=== PATIENT | male | born 1975 | race Caucasian/White ===

== ENCOUNTER 2019-10-10 22:40 | Observation (INO) | payer SELFPAY ==
[~2019-10-10] VITALS: Ht 180.3 cm; Wt 104.3 kg
[2019-10-10] MEDS ORDERED: ASPIRIN 81 MG CHEW TAB PO ONE (22:45)
--- NOTE | 2019-10-10 22:47 | Emergency Department Note ---
History of Present Illnes History of Present Illness History of Present Illness This is a 44 year old male presents to the ED for substernal CP which started this AM . Historian: Patient Arrival Mode: Car Onset (how long ago): day(s) (1) Location: substernal Radiation: Reports non-radiation Severity: moderate Onset quality: gradual Duration (how long): day(s) (1) Timing of current episode: constant Progression: unchanged Chronicity: new Context: Denies recent illness, Denies recent surgery, Denies recent immobilization, Denies recent travel, Denies trauma/injury, Denies new medi cations, Denies hx of DVT/PE, Denies non-compliance w/ medications, Denies other Relieving factors: none Exacerbating factors: none Associated symptoms: Reports chest pain Treatments prior to arrival: none Past Medical/Family History Physician Review I have reviewed the patient's past medical and family history. Any updates have been documented here. Past Medical History Recent Fever: No Clinical Suspicion of Infectio: No New/Unexplained Change in Ment: No Past Medical History: Osteoarthritis Past Surgical History: None Social History Smoking Cessation: Never Smoker Alcohol Use: None Any Illegal Drug Use: No Review of Systems Review of Systems Constitutional: Reports no symptoms EENTM: Reports no symptoms Cardiovascular: Reports chest pain, Reports edema Respiratory: Reports dyspnea Gastrointestinal: Reports no symptoms Genitourinary: Reports no symptoms Musculoskeletal: Reports no symptoms Integumentary: Reports no symptoms Neurological: Reports no symptoms Psychological: Reports no symptoms Endocrine: Reports no symptoms Hematological/Lymphatic: Reports no symptoms Physical Exam Related Data Allergies: Coded Allergies: No Known Allergies (Unverified , 10/10/19) Triage Vital Signs Vital Signs Date Time Temp Pulse Resp B/P (MAP) Pulse Ox O2 Delivery O2 Flow Rate FiO2 10/10/19 22:54 98.6 109 23 148/101 100 Room Air Vital signs reviewed: Yes Physical Exam CONSTITUTIONAL Constitutional: Present obese, Present other (poor hygeine) HENT HENT: Present normocephalic, Present atraumatic, Present oropharynx clear/moist, Present nose normal HENT L/R: Present left ext ear normal, Present right ext ear normal EYES Eyes: Reports PERRL, Reports conjunctivae normal NECK Neck: Present ROM normal PULMONARY Pulmonary: Present effort normal, Present breath sounds normal CARDIOVASCULAR Cardiovascular: Present tachycardia, Present LLE edema, Present RLE edema GASTROINTESTINAL Abdominal: Present soft, Present nontender, Present bowel sounds normal GENITOURINARY Genitourinary: Present exam deferred SKIN Skin: Present erythema, Present other (dry xerotic skin b/l LE with partial thickness wound anterior distal leg .Granulation tissue at base without p eriwound erythema) MUSCULOSKELETAL Musculoskeletal: Present ROM normal NEUROLOGICAL Neurological: Present alert, Present oriented x 3, Present no gross motor or sensory deficits PSYCHOLOGICAL Psychological: Present mood/affect normal, Present judgement normal Results Laboratory Lab results reviewed: Yes Laboratory comments Laboratory Tests Test 10/10/19 23:07 White Blood Count 9.47 x10e3/uL (4.8-10.8) Red Blood Count 3.75 x10e6/uL (4.3-5.7) Hemoglobin 10.1 g/dL (14.0-18.0) Hematocrit 32.0 % (38.2-49.6) Mean Corpuscular Volume 85.3 fL (81-99) Mean Corpuscular Hemoglobin 26.9 pg (28-32) Mean Corpuscular Hemoglobin Concent 31.6 g/dL (31-35) Red Cell Distribution Width 14.9 % (11.7-14.4) Platelet Count 289 x10e3/uL (140-360) Neutrophils (%) (Auto) 71.2 % (38.7-80.0) Lymphocytes (%) (Auto) 14.0 % (18.0-39.1) Monocytes (%) (Auto) 13.6 % (4.4-11.3) Eosinophils (%) (Auto) 0.2 % (0.0-6.0) Basophils (%) (Auto) 0.3 % (0.0-1.0) Neutrophils # (Auto) 6.7 (2.1-6.9) Lymphocytes # (Auto) 1.3 (1.0-3.2) Monocytes # (Auto) 1.3 (0.2-0.8) Eosinophils # (Auto) 0.0 (0.0-0.4) Basophils # (Auto) 0.0 (0.0-0.1) Absolute Immature Granulocyte (auto 0.07 x10e3/uL (0-0.1) Sodium Level 134 mmol/L (136-145) Potassium Level 3.7 mmol/L (3.5-5.1) Chloride Level 97 mmol/L (98-107) Carbon Dioxide Level 21 mmol/L (22-29) Anion Gap 19.7 mmol/L (8-16) Blood Urea Nitrogen 6 mg/dL (7-26) Creatinine 0.83 mg/dL (0.72-1.25) Estimat Glomerular Filtration Rate > 60 ML/MIN (60-) BUN/Creatinine Ratio 7 (6-25) Glucose Level 109 mg/dL (74-118) Calcium Level 9.1 mg/dL (8.4-10.2) Total Bilirubin 1.1 mg/dL (0.2-1.2) Aspartate Amino Transf (AST/SGOT) 28 IU/L (5-34) Alanine Aminotransferase (ALT/SGPT) 33 IU/L (0-55) Alkaline Phosphatase 94 IU/L (40-150) Creatine Kinase 49 IU/L (30-200) Creatine Kinase MB 0.30 ng/mL (0-5.0) Troponin I < 0.001 ng/mL (0-0.300) B-Type Natriuretic Peptide 12.4 pg/mL (0-100) Total Protein 8.2 g/dL (6.5-8.1) Albumin 4.2 g/dL (3.5-5.0) Globulin 4.0 g/dL (2.3-3.5) Albumin/Globulin Ratio 1.1 (0.8-2.0) Imaging Imaging results reviewed: Yes Impressions [place] [id number] Patient Name: PAN BARRIOS MR #: [id number] : 1975 Age/Sex: 44/M Req #: [id number] Adm Physician: Ordered by: JAGDISH KRAUSE DO Report #: [id number] Location: Room/Bed: ____ Procedure: [id number] DX/CHEST SINGLE (PORTABLE) Exam Date: 10/10/19 Exam Time: 2324 REPORT STATUS: Signed EXAMINATION: CHEST SINGLE (PORTABLE) INDICATION: ^CP ^[id number] ^[id number] COMPARISON: None FINDINGS: AP view TUBES and LINES: None. LUNGS: Lungs are well inflated. Minimal left basilar haziness. PLEURA: No significant pleural effusion or pneumothorax. HEART AND MEDIASTINUM: The cardiomediastinal silhouette is enlarged on this AP view.. BONES AND SOFT TISSUES: No acute osseous lesion. Soft tissues are unremarkable. UPPER ABDOMEN: No free air under the diaphragm. IMPRESSION: Minimal left basilar haziness, which could be due to subsegmental atelectasis, small effusion, or developing pneumonia in the appropriate clinical context. Signed by: Dr. Osorio Tripp MD on 10/10/2019 11:48 PM Dictated By: OSORIO TRIPP MD 47 Transcribed By: JU on 10/10/192347 COPY TO: JAGDISH KRAUSE DO~ Procedures 12 Lead ECG Interpretation ECG Interpretation : ECG: ECG 1 Housekeeper Nanny: Interpreted by ED physician Date: Oct 10, 2019 Time: 22:58 Prior ECG tracings: reviewed Rhythm: sinus tachycardia Rate: tachycardia BPM: 101 QRS axis: normal ST segments normal: Yes T waves normal: Yes Clinical Decision Tools HEART Score HEART Score: HEART Score Response (Comments) Value History Slightly suspicious 0 EKG Normal 0 Age 45 - 65 1 Risk factors 1 or 2 risk factors 1 Troponin < or = to normal limit Total 2 Assessment & Plan Medical Decision Making MDM Diff Dx : cellulitis, PE, ACS, costocondritis Reassessment Reassessment patient without social support . Plan to consult case management. Assessment & Plan Final Impression: (1) Atypical chest pain (2) Leg wound, right Depart Disposition: ADMITTED JAGDISH KRAUSE DO Oct 10, 2019 22:47
[2019-10-10 23:14] LABS: BASOPHILS % 0.3 % (0.0-1.0); EOSINOPHILS % 0.2 % (0.0-6.0); HEMOGLOBIN 10.1 g/dL (14.0-18.0); LYMPHOCYTES # (AUTO) 1.3 (1.0-3.2); MEAN CORPUSCULAR HEMOGLOBIN 26.9 pg (28-32); MEAN CORPUSCULAR HGB CONC 31.6 g/dL (31-35); MEAN CORPUSCULAR VOLUME 85.3 fL (81-99); MONOCYTES # (AUTO) 1.3 (0.2-0.8); MONOCYTES % 13.6 % (4.4-11.3); NEUTROPHILS # (AUTO) 6.7 (2.1-6.9); NEUTROPHILS % 71.2 % (38.7-80.0); PLATELET COUNT 289 x10e3/uL (140-360); RED BLOOD COUNT 3.75 x10e6/uL (4.3-5.7); RED CELL DISTRIBUTION WIDTH 14.9 % (11.7-14.4)
[2019-10-10 23:33] LABS: ALANINE AMINOTRANSFERASE 33 IU/L (0-55); ALBUMIN 4.2 g/dL (3.5-5.0); ALBUMIN/GLOBULIN RATIO 1.1 (0.8-2.0); ALKALINE PHOSPHATASE 94 IU/L (40-150); ANION GAP 19.7 mmol/L (8-16); BLOOD UREA NITROGEN 6 mg/dL (7-26); BUN/CREATININE RATIO 7 (6-25); CALCIUM 9.1 mg/dL (8.4-10.2); CARBON DIOXIDE 21 mmol/L (22-29); CHLORIDE 97 mmol/L (98-107); CREATINE KINASE 49 IU/L (30-200); CREATININE, SERUM 0.83 mg/dL (0.72-1.25); EST GLOMERULAR FILTRATION RATE > 60 ML/MIN (60-); GLUCOSE 109 mg/dL (74-118); POTASSIUM 3.7 mmol/L (3.5-5.1); SODIUM 134 mmol/L (136-145)
--- NOTE | 2019-10-10 23:52 | Diagnostic Imaging Report ---
EXAMINATION: CHEST SINGLE (PORTABLE) INDICATION: ^CP ^[id number] ^[id number] COMPARISON: None FINDINGS: AP view TUBES and LINES: None. LUNGS: Lungs are well inflated. Minimal left basilar haziness. PLEURA: No significant pleural effusion or pneumothorax. HEART AND MEDIASTINUM: The cardiomediastinal silhouette is enlarged on this AP view.. BONES AND SOFT TISSUES: No acute osseous lesion. Soft tissues are unremarkable. UPPER ABDOMEN: No free air under the diaphragm. IMPRESSION: Minimal left basilar haziness, which could be due to subsegmental atelectasis, small effusion, or developing pneumonia in the appropriate clinical context. Signed by: Dr. Osorio Tripp MD on 10/10/2019 11:48 PM
--- NOTE | 2019-10-11 03:06 | NUR ---
Attempted to place patient in taxi. Patient unable to get in under his own power. driver education instructor states patient cannot go if he cannot ambulate under own power.
--- NOTE | 2019-10-11 03:25 | NUR ---
Pt was place back to ER-7 per house sup instructions & later be endorse to a behavioral health case manager later today. Pt will be continously monitored here in ED. No further complaint made.
--- NOTE | 2019-10-11 07:28 | NUR ---
Pt assessed, noted large amount of swelling to L hand and arm, Noted erythema , +2. Cap refill >2 seconds, palpable radial pulse bilaterally. Bilateral lower extremities red, warm to touch, +3 pitting edema. Noted wounds to R Lower leg. Dressing placed on previous shift by RN. Weak pedal pulses noted. Pt reports pain is 10/10. Pt is unable to ambulate at this time due the pain and weakness. Pt reports the swelling has gotten so bad he cannot push his cart and cannot walk, states "I can't keep from falling". Food provided for patient.
--- NOTE | 2019-10-11 07:32 | NUR ---
called case mangement per hand off report of night charge. per romeo cornejo spoke to aos (cleve) who wanted social science instructor called this am for possible placement. primary nurse aware of all information above. social science instructor states will come eval situation daren. will move forward after that. per social science instructor, pt needs to be fed and primary nurse asked md for diet order. obtained verbal order and tray ordered for pt.
--- NOTE | 2019-10-11 07:44 | NUR ---
complete re-eval by primary nurse and updated full vital signs by primary rn. pt remains in sinus tach no ectopy and tachypnenic.
--- NOTE | 2019-10-11 07:45 | NUR ---
all concerns adressed to er md by primary nurse.
--- NOTE | 2019-10-11 07:46 | NUR ---
er md and primary rn to room together for update plan of care. md to admit pt per primary rn
[2019-10-11] MEDS ORDERED: CEFEPIME 1GM/NS 0.9% 50 ML 50 ML IV ONE ×2 (08:00→08:44)
[2019-10-11] MEDS ORDERED: ASPIRIN 81 MG CHEW TAB PO ONE (08:00)
--- NOTE | 2019-10-11 08:08 | NUR ---
SW at bedside speaking with patient.
--- NOTE | 2019-10-11 08:13 | NUR ---
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 Pt has a mother and friends who pay for his cell phone. Pt states four years ago he injured his leg doing martial arts and two years ago got a wheelchair and has used it ever since. Pt states he let his gold card laspe because he can go anywhere and hospitals will take care of him. Pt aware of admission and agree's. Pt is aware he will have to find his own placement at discharge. Pt states understanding. Pt given nursing home list, gold card application, and help card. ([facility])
--- NOTE | 2019-10-11 08:18 | NUR ---
SPOKE WITH PATIENT, BEEN LIVING IN PARKING LOT BEHIND [employer] AND THE [employer]. HAS OWN WHEELCHAIR, HURT HIS KNEES 4 YEARS AGO AND NEVER GOT THEM FIXED. HAD A GOLD CARD PRIOR AND LET [employer]. MOTHER LIVES LOCALLY AND HE DEPENDS ON HER AND FRIENDS FOR MONEY TO PAY FOR HIS CELL PHONE AND ODD THINGS. STATES WHITLOCK WALKED IN 2 YEARS. DEPENDS ON THE SYSTEM, HOSPITALS WILL TAKE CARE OF HIM WHEN HE NEEDS. DOESNT LIKE SHELTERS. HAD REALISTIC CONVERSATIONS ABOUT NEED OF CARE. PT IS SELF PAY. HE STATES HE THOUGHT THE STATE WOULD PUT HIM IN A INTERMEDIATE AND PAY FOR HIM TO BE TAKEN CARE OF. LET HIM KNOW THAT IS A CRITERIA AND PROCESS THAT TAKES A LONG TIME TO COMPLETE UP TO 2 YEARS. STATES WHITLOCK WORKED IN YEARS. LET HIM KNOW HE IS BEING ADMITTED BUT NEEDS TO CONSIDER HIS OPTIONS FOR DISCHARGE AND TO THINK ABOUT WHERE HE IS GOING WHEN HE IS READY FOR DISCHARGE. HE STATES HE WILL THINK ABOUT IT. WILL FOLLOW UP.
--- OUTSIDE RECORDS SUMMARY | 2019-10-11 08:22 | XMS REPORT | Continuity of Care Document ---
Author Author [facility] t Organization [facility] Address [address] [place] [address] Phone Unavailable Care Team Providers Care Gluer Machine Operator Name Role Phone JAGDISH KRAUSE Unavailable Payers Payer Name Policy Type Policy Number Effective Date Expiration Date S ource Problems This patient has no known problems. Allergies, Adverse Reactions, Alerts Allergy Name Allergy Type Status Severity Reaction(s) Onset Date Inacti ve Date Treating Clinician Comments Source No Known Allergies DA Active U 2017-11-03 00:00:00 [facility] No Known Allergies DA Active U 2017-10-13 00:00:00 [facility] No Known Allergies DA Active U 2016-05-26 00:00:[address] [facility] Medications This patient has no known medications. Procedures This patient has no known procedures. Results Test Description Test Time Test Comments Results Result Comments Source CHEST SINGLE (PORTABLE) 2019-10-10 23:47:00 [facility] [address] [address] Patient Name: PAN BARRIOS MR #: [id number] : 1975 Age/Sex: 44/M Req #: [id number] Adm Physician: Ordered by: JAGDISH KRAUSE DO Report #: [id number] Location: ER Room/Bed: Procedure: [id number] DX/CHEST SINGLE (PORTABLE) Exam Date: 10/10/19 Exam Time: 5 REPORT STATUS: Signed EXAMINATION: CHEST SINGLE (PORTABLE) INDICATION: [id number] COMPARISON: None FINDINGS: AP view TUBES and LINES: None. LUNGS: Lungs are well inflated. Minimal left basilar haziness. PLEURA: No sign ificant pleural effusion or pneumothorax. HEART AND MEDIASTINUM: The cardiomediastinal silhouette is enlarged on this AP view.. BONES AND SOFT TISSUES: No acute osseous lesion. Soft tissues are unremarkable. UPPER ABDOMEN: No free air under the diaphragm. IMPRESSION: Minimal left basilar haziness, which could be due to subsegmental atelectasis, small effusion, or developing pneumonia in the appropriate clinical context. Signed by: Dr. Osorio Tamayo MD on 10/10/2019 11:48 PM Dictated By: OSORIO TAMAYO MD 47 Transcribed By: JU on 10/10/192347 COPY TO: JAGDISH KRAUSE DO JAK2 MUTATION ANALYSIS 2019-04-19 12:03:00 Test Item JAK2 MUTATION ANALYSIS (test code = MXK5IAB) SEE REPORT JAK2 Mutation Analysis, Qual JAK2 V617F mutation detection Result: NEGATIVE for the JAK2 V617F mutation. Interpretation: The G to T nucleotide change encoding the V617F mutation was not detected. This result does not rule out the presence of the JAK2 mutation at a level below the sensitivity of detection of this assay, or the presence of other mutations within JAK2 not detected by this assay. This result does not rule out a diagnosis of polycythemia vera, essential thrombocythemia or idiopathic myelofibrosis as the V617F mutation is not detected in all patients with these disorders. Background: JAK2 is a cytoplasmic tyrosine kinase with a self role insignaltransduction from multiple hematopoietic growth factorreceptors. A point mutation within exon 14 of the JAK2 gene([id number]) encoding a valine to phenylalanine substitution atposition 617 of the JAK2 protein (V617F) has been identifiedin most patients with polycythemia vera, and in about halfhalf of those with either essential thrombocythemia oridiopathic myelofibrosis. The V617F has also been detected,although infrequently, in other myeloid disorders such aschronic myelomonocytic leukemia and chronic neutrophilicluekemia.V617F is an acquired mutation that alters a highly conservedvaline present in the negative regulatory JH2 domain of theJAK2 protein and is predicted to dysregulate kinase activity Methodology:Total genomic DNA was extracted and subjected to TaqManreal-time PCR amplification/detection. Two amplificationproducts per sample were monitored by real-time PCR usingprimers/probes specific to JAK2 wild type (WT) and JAK2 mutant V617F. The [employer]-Drive [employer] Absolute Quantitation softwarewill compare the patient specimen valuse to the standardcurves and generate percent values for wild type and mutanttype.In vitro studies have indicated that this assay has ananalyticalsensitivity of 1%.References:Scott EJ, Daniel QUIGLEY, Main PJ, et al. Acquired mutationof the tyrosine kinase JAK2 in human myeloproliferativedisorders. Lancet.2005 Apr 25-; 365(3878):0467-7967.Jonathan Matthews, Manav Land, Livier Ledesma JP. A unique clonal JAK2 mutationleading to constitutive signaling causes polycythaemia vera.Nature.2005 May 28; 434(6014):2601-8145. Naveen R, Tito F, Anthony , et al. Jldme-ca-qugylgayaxirexfg of JAK2 in myeloproliferative disorders. N Engl JMed. 2005Apr 28; 352(56):9144-3924. Director Review: Soco Spence, PhD, [facility] 01 Director, Molecular Genetics [facility] [place], [place] BY CHITRA 04/19/19 1203 FE W/TOTAL IRON BINDING CAP.2019-04-19 12:03:00* Test Item Value Reference Range Interpretation Comments SERUM IRON (test code = IRON) 27 ug/dL 50-175 L TOTAL IRON BINDING CAPACITY (test code = TIBC) 291 mcg/dL 250-450 N IRON SATURATION (test code = FESAT) 9.28 % 13-45 L VITAMIN [id number] 12:03:00* Test Item Value Reference Range Interpretation Comments VITAMIN B12 (test code = VITB12) 385 pg/mL 193-986 N THYROID STIMULATING [id number] 12:03:00* Test Item Value Reference Range Interpretation Comments THYROID STIMULATING HORMONE (test code = TSH) 4.850 uIU/mL 0.36-3.7 4 H TSH REFERENCE RANGES: EUTHYROID: 0.35 - 4.3 mIU/mL HYPO : > 5.5 mIU/mL HYPER : < 0.35 mIU/mL [id number] 13:09:00* Test Item Value Reference Range Interpretation Comments ERYTHROPOIETIN (test code = JOLLY) 10.1 mIU/mL 2.6-18.5 Simone [place] DxI 800 Immunoassay SystemValues obtained with different assay methods or kits cannotbe used interchangeably. Results cannot be interpreted asabsolute evidence of the presence or absence of malignantdisease.Performed At: [facility] [id number] Christine MD Ph:[phone] [id number] 16:35:00* Test Item Value Reference Range Interpretation Comments GLUBED (test code = GLUBED) 84 mg/dL 74-106 N Performed by certified dinkey operator at [facility] AB HEPATITIS [id number] 10:45:00* Test Item Value Reference Range Interpretation Comments AB HEPATITIS C (test code = HCVAB) 0.3 0.0-0.9 INFCE Result Units: s/co ratio Negative: < 0.8 Indeterminate: 0.8 - 0.9 Positive: > 0.9 The CDC recommends that a positive HCV antibody result be followed up with a HCV Nucleic Acid Amplification test ([id number]).Performed At: [facility] [id number] Kyle L MD Ph:[phone] [id number] 08:10:00* Test Item Value Reference Range Interpretation Comments GLUBED (test code = GLUBED) 84 mg/dL 74-106 N Performed by certified dinkey operator at [facility] BASIC METABOLIC [id number] 05:05:00* Test Item Value Reference Range Interpretation Comments SODIUM (test code = NA) 137 mmol/L 136-145 RESU LT VERIFIED BY REPEAT ANALYSIS POTASSIUM (test code = K) 4.9 mmol/L 3.5-5.1 N CHLORIDE (test code = CL) 107.0 mmol/L 98-107 N CARBON DIOXIDE (test code = CO2) 24.0 mmol/L 21-32 N ANION GAP (test code = GAP) 10.9 10-20 N GLUCOSE (test code = GLU) 80 mg/dL 74-106 N BLOOD UREA NITROGEN (test code = BUN) 35 mg/dL 7-18 H RESULT VERIFIED BY REPEAT ANALYSIS GLOMERULAR FILTRATION RATE (test code = GFR) > 60 mL/min >=60 Estimated GFR by using Modified MDRD formula.Chronic kidney disease is defined as either kidney damageor GFR <60 mL/min/1.73 m2 for >3 months. CREATININE (test code = CREAT) 0.90 mg/dL 0.7-1.3 N BUN/CREATININE RATIO (test code = BUN/CREA) 38.9 10-20 H CALCIUM (test code = CA) 8.4 mg/dL 8.5-10.1 L CBC W/AUTO [id number] 04:36:00* Test Item Value Reference Range Interpretation Comments WHITE BLOOD CELL (test code = WBC) 6.2 K/mm3 4.5-12.5 N RED BLOOD CELL (test code = RBC) 3.23 mill/mm3 4.0-5.8 L HEMOGLOBIN (test code = HGB) 8.9 gram/dL 13.0-17.5 L RESULT VERIFIED BY REPEAT ANALYSIS HEMATOCRIT (test code = HCT) 28.2 % 42.0-52.0 L MEAN CELL VOLUME (test code = MCV) 87.3 fL 80-98 N MEAN CELL HGB (test code = MCH) 27.6 picogram 27.0-33.0 N MEAN CELL HGB CONCETRATION (test code = MCHC) 31.6 gram/dL 33.0-36. 0 L RED CELL DISTRIBUTION WIDTH (test code = RDW) 13.2 % 11.6-16. 2 N RED CELL DISTRIBUTION WIDTH SD (test code = RDW-SD) 42.6 fL 37 .0-51.0 N PLATELET COUNT (test code = PLT) 474 K/mm3 150-450 H RESULT VERIFIED BY REPEAT ANALYSIS MEAN PLATELET VOLUME (test code = MPV) 9.6 fL 6.7-11.0 N NEUTROPHIL % (test code = NT%) 53.7 % 39.0-69.0 N IMMATURE GRANULOCYTE % (test code = IG%) 1.6 % 0.0-5.0 N LYMPHOCYTE % (test code = LY%) 34.1 % 25.0-55.0 N MONOCYTE % (test code = MO%) 8.5 % 0.0-10.0 N EOSINOPHIL % (test code = EO%) 1.6 % 0.0-5.0 N BASOPHIL % (test code = BA%) 0.5 % 0.0-1.0 N NUCLEATED RBC % (test code = NRBC%) 0.0 % 0-0 N NEUTROPHIL # (test code = NT#) 3.30 K/mm3 1.8-7.7 N IMMATURE GRANULOCYTE # (test code = IG#) 0.10 x10 3/uL 0-0.03 H LYMPHOCYTE # (test code = LY#) 2.10 K/mm3 1.0-5.0 N MONOCYTE # (test code = MO#) 0.52 K/mm3 0-0.8 N EOSINOPHIL # (test code = EO#) 0.10 K/mm3 0.0-0.5 N BASOPHIL # (test code = BA#) 0.03 K/mm3 0.0-0.2 N NUCLEATED RBC # (test code = NRBC#) 0.00 K/mm3 0.0-0.1 N [id number] 19:35:00* Test Item Value Reference Range Interpretation Comments GLUBED (test code = GLUBED) 107 mg/dL 74-106 H Performed by certified dinkey operator at [facility] [id number] 19:35:00* Test Item Value Reference Range Interpretation Comments GLUBED (test code = GLUBED) 85 mg/dL 74-106 N Performed by certified dinkey operator at [facility] UR SMEAR EOSINOPHIL [id number] 17:41:00* Test Item Value Reference Range Interpretation Comments UR SMEAR EOSINOPHIL COUNT (test code = EOSCTU) NONE SEEN per HPF NO NE SEEN UR [id number] 17:41:00* Test Item Value Reference Range Interpretation Comments UR NA,RANDOM (test code = KARSTEN) 28 mmol/L 20-110 N URINE K, RANDOM (test code = KU) 74.0 mmol/L 12-75 N UR CHLORIDE RANDOM (test code = CLU) < 10 mEq/L UR PROTEIN/CREATININE [id number] 17:41:00* Test Item Value Reference Range Interpretation Comments UR PROTEIN RANDOM (test code = PROTU) 55.6 mg/dL 0.0-11.9 H Protein levels may be falsely elevated in patients withelevated level of aminoglycoside antibiotics in CSF and inhighly concentrated urine specimens. If false elevation issuspected, contact lab for alternated testing technique. UR CREATININE RANDOM (test code = CREATU) 318.0 mg/dL 30-125 H PROTEIN/CREATININE RATIO (test code = P/CRATIO) 0.17 RATIO 0.0-0. 20 N UR SMEAR EOSINOPHIL [id number] 16:06:00* Test Item Value Reference Range Interpretation Comments UR SMEAR EOSINOPHIL COUNT (test code = EOSCTU) per HPF NONE SE EN UR [id number] 16:06:00* Test Item Value Reference Range Interpretation Comments UR NA,RANDOM (test code = KARSTEN) 28 mmol/L 20-110 N URINE K, RANDOM (test code = KU) 74.0 mmol/L 12-75 N UR CHLORIDE RANDOM (test code = CLU) < 10 mEq/L UR PROTEIN/CREATININE [id number] 16:06:00* Test Item Value Reference Range Interpretation Comments UR PROTEIN RANDOM (test code = PROTU) 55.6 mg/dL 0.0-11.9 H Protein levels may be falsely elevated in patients withelevated level of aminoglycoside antibiotics in CSF and inhighly concentrated urine specimens. If false elevation issuspected, contact lab for alternated testing technique. UR CREATININE RANDOM (test code = CREATU) 318.0 mg/dL 30-125 H PROTEIN/CREATININE RATIO (test code = P/CRATIO) 0.17 RATIO 0.0-0. 20 N UR SMEAR EOSINOPHIL [id number] 15:52:00* Test Item Value Reference Range Interpretation Comments UR SMEAR EOSINOPHIL COUNT (test code = EOSCTU) per HPF NONE SE EN UR [id number] 15:52:00* Test Item Value Reference Range Interpretation Comments UR NA,RANDOM (test code = KARSTEN) 28 mmol/L 20-110 N URINE K, RANDOM (test code = KU) 74.0 mmol/L 12-75 N UR CHLORIDE RANDOM (test code = CLU) < 10 mEq/L UR PROTEIN/CREATININE [id number] 15:52:00* Test Item Value Reference Range Interpretation Comments UR PROTEIN RANDOM (test code = PROTU) mg/dL 0.0-11.9 UR CREATININE RANDOM (test code = CREATU) mg/dL 30-125 PROTEIN/CREATININE RATIO (test code = P/CRATIO) RATIO 0.0-0. 20 BASIC METABOLIC [id number] 12:33:00* Test Item Value Reference Range Interpretation Comments SODIUM (test code = NA) 131 mmol/L 136-145 L POTASSIUM (test code = K) 4.7 mmol/L 3.5-5.1 N CHLORIDE (test code = CL) 99.0 mmol/L 98-107 N CARBON DIOXIDE (test code = CO2) 21.0 mmol/L 21-32 N ANION GAP (test code = GAP) 15.7 10-20 N GLUCOSE (test code = GLU) 108 mg/dL 74-106 H BLOOD UREA NITROGEN (test code = BUN) 58 mg/dL 7-18 H GLOMERULAR FILTRATION RATE (test code = GFR) 36 mL/min >=60 Estimated GFR by using Modified MDRD formula.Chronic kidney disease is defined as either kidney damageor GFR <60 mL/min/1.73 m2 for >3 months. CREATININE (test code = CREAT) 2.00 mg/dL 0.7-1.3 H BUN/CREATININE RATIO (test code = BUN/CREA) 29.0 10-20 H CALCIUM (test code = CA) 9.5 mg/dL 8.5-10.1 N BASIC METABOLIC [id number] 12:30:00* Test Item Value Reference Range Interpretation Comments SODIUM (test code = NA) 131 mmol/L 136-145 L POTASSIUM (test code = K) 4.7 mmol/L 3.5-5.1 N CHLORIDE (test code = CL) 99.0 mmol/L 98-107 N CARBON DIOXIDE (test code = CO2) mmol/L 21-32 ANION GAP (test code = GAP) 10-20 GLUCOSE (test code = GLU) mg/dL 74-106 BLOOD UREA NITROGEN (test code = BUN) mg/dL 7-18 GLOMERULAR FILTRATION RATE (test code = GFR) mL/min >=60 CREATININE (test code = CREAT) mg/dL 0.7-1.3 BUN/CREATININE RATIO (test code = BUN/CREA) 10-20 CALCIUM (test code = CA) mg/dL 8.5-10.1 CBC W/AUTO [id number] 12:19:00* Test Item Value Reference Range Interpretation Comments WHITE BLOOD CELL (test code = WBC) 10.1 K/mm3 4.5-12.5 N RED BLOOD CELL (test code = RBC) 4.02 mill/mm3 4.0-5.8 N HEMOGLOBIN (test code = HGB) 10.9 gram/dL 13.0-17.5 L RESULT VERIFIED BY REPEAT ANALYSIS HEMATOCRIT (test code = HCT) 34.7 % 42.0-52.0 L MEAN CELL VOLUME (test code = MCV) 86.3 fL 80-98 N MEAN CELL HGB (test code = MCH) 27.1 picogram 27.0-33.0 N MEAN CELL HGB CONCETRATION (test code = MCHC) 31.4 gram/dL 33.0-36. 0 L RED CELL DISTRIBUTION WIDTH (test code = RDW) 13.5 % 11.6-16. 2 N RED CELL DISTRIBUTION WIDTH SD (test code = RDW-SD) 42.5 fL 37 .0-51.0 N PLATELET COUNT (test code = PLT) 588 K/mm3 150-450 H RESULT VERIFIED BY REPEAT ANALYSIS MEAN PLATELET VOLUME (test code = MPV) 9.4 fL 6.7-11.0 N NEUTROPHIL % (test code = NT%) 73.3 % 39.0-69.0 H IMMATURE GRANULOCYTE % (test code = IG%) 1.6 % 0.0-5.0 N LYMPHOCYTE % (test code = LY%) 16.1 % 25.0-55.0 L MONOCYTE % (test code = MO%) 8.0 % 0.0-10.0 N EOSINOPHIL % (test code = EO%) 0.7 % 0.0-5.0 N BASOPHIL % (test code = BA%) 0.3 % 0.0-1.0 N NUCLEATED RBC % (test code = NRBC%) 0.0 % 0-0 N NEUTROPHIL # (test code = NT#) 7.39 K/mm3 1.8-7.7 N IMMATURE GRANULOCYTE # (test code = IG#) 0.16 x10 3/uL 0-0.03 H LYMPHOCYTE # (test code = LY#) 1.62 K/mm3 1.0-5.0 N MONOCYTE # (test code = MO#) 0.81 K/mm3 0-0.8 H EOSINOPHIL # (test code = EO#) 0.07 K/mm3 0.0-0.5 N BASOPHIL # (test code = BA#) 0.03 K/mm3 0.0-0.2 N NUCLEATED RBC # (test code = NRBC#) 0.00 K/mm3 0.0-0.1 N MANUAL DIFF REQUIRED (test code = MDIFF) NO ARTERIAL BLOOD [id number] 11:43:00* Test Item Value Reference Range Interpretation Comments ARTERIAL BLOOD GAS PH (test code = PHA) 7.40 7.35-7.45 N ARTERIAL BLOOD GAS PCO2 (test code = PCO2A) 36.7 mm Hg 35-45 N ARTERIAL BLOOD GAS PO2 (test code = PO2A) 90.8 mmHg 80-100 N BICARBONATE TOTAL HCO3 (test code = HCO3) 22.3 mmol/L 23.0-27.0 L BASE EXCESS (test code = KATTY) -2.1 mmol/L -3.0-5.0 N ABG O2 SATURATION (test code = SATA) 96.3 % 90.0-98.0 N ABG TYPE (test code = TYPEA) Arterial FIO2 (test code = FIO2A) 21.0 ABG SITE (test code = SITEA) Lt RADIAL ARTERY MODIFIED ALLENS (test code = MODALL) Yes CHECK PERFORMED HEMATOCRIT (test code = HCT/ABG) 36 % 42-52 L TOTAL HGB (test code = THB) 12.3 gram/dL 13.0-17.5 L HGB O2 SAT (test code = HBOSAT) 94.8 % 94.00-98.00 N CARBOXYHEMOGLOBIN (test code = HOHGBT) 0.8 %totalHg 0.5-1.5 N METHEMOGLOBIN (test code = METHGB) 0.8 % 0.0-1.50 N O2 CONTENT (test code = O2CT) 16.5 % vol 18.0-22.0 L [id number] 11:26:00* Test Item Value Reference Range Interpretation Comments GLUBED (test code = GLUBED) 94 mg/dL 74-106 N Performed by certified dinkey operator at [facility] SED RATE [id number] 10:23:00* Test Item Value Reference Range Interpretation Comments SED RATE WESTERGREN (test code = SEDW) 94 mm/hr 0-15 H SED [id number] 10:23:00* Test Item Value Reference Range Interpretation Comments SED RATE (test code = SEDW) 94 mm/hr 0-15 H WINTROBE METHOD: NORMAL RANGE FOR MEN: 0-9 MM/HR WOMAN: 0-20 MM/HR AB [id number] 09:30:00* Test Item Value Reference Range Interpretation Comments AB TREPONEMA (test code = TREPAB) Nonreactive Index NonReactive PROCALCITONIN (PCT)2019-04-12 07:46:00* Test Item Value Reference Range Interpretation Comments PROCALCITONIN (PCT) (test code = PROCAL) 0.54 ng/ml Concentration Interpretation (ng/mL) <0.51 Sepsis is not likely. Local bacterial infection is possible. (LOW RISK for progression to Sepsis) 0.51 - 2.00 Sepsis is possible, but other conditions are known to elevate PCT as well. (MODERATE RISK for progression to Sepsis) > 2.00 Sepsis is likely, unless other causes are known. (HIGH RISK for progression to Severe Sepsis or Septic Shock) 10.00 High likelihood of Severe Sepsis or Septic or higher Shock. *Increased PCT levels may not always be related to systemic bacterial infection.*Low PCT levels do not automatically exclude the presence of bacterial infection.*All results should be interpreted taking into account the patients history. JAK2 MUTATION [id number] 07:39:00* Test Item Value Reference Range Interpretation Comments JAK2 MUTATION ANALYSIS (test code = [id number]) FE W/TOTAL IRON BINDING CAP.2019-04-12 07:39:00* Test Item Value Reference Range Interpretation Comments SERUM IRON (test code = IRON) 27 ug/dL 50-175 L TOTAL IRON BINDING CAPACITY (test code = TIBC) 291 mcg/dL 250-450 N IRON SATURATION (test code = FESAT) 9.28 % 13-45 L VITAMIN [id number] 07:39:00* Test Item Value Reference Range Interpretation Comments VITAMIN B12 (test code = VITB12) 385 pg/mL 193-986 N THYROID STIMULATING [id number] 07:39:00* Test Item Value Reference Range Interpretation Comments THYROID STIMULATING HORMONE (test code = TSH) 4.850 uIU/mL 0.36-3.7 4 H TSH REFERENCE RANGES: EUTHYROID: 0.35 - 4.3 mIU/mL HYPO : > 5.5 mIU/mL HYPER : < 0.35 mIU/mL CREATINE KINASE (CK)2019-04-12 07:35:00* Test Item Value Reference Range Interpretation Comments CREATINE KINASE (CK) (test code = CK) 440 IUnit/L 26-208 H FOLIC [id number] 07:35:00* Test Item Value Reference Range Interpretation Comments FOLIC ACID (test code = FOL) 10.1 ng/mL 3.10-17.50 N CALCIUM [id number] 07:35:00* Test Item Value Reference Range Interpretation Comments CALCIUM IONIZED (test code = KARLEY) 1.37 mmol/L 1.12-1.32 H [id number] 07:35:00* Test Item Value Reference Range Interpretation Comments FERRITIN (test code = EBONY) 849 ng/mL 8-388 H CREATINE KINASE (CK)2019-04-12 07:33:00* Test Item Value Reference Range Interpretation Comments CREATINE KINASE (CK) (test code = CK) 440 IUnit/L 26-208 H FOLIC [id number] 07:33:00* Test Item Value Reference Range Interpretation Comments FOLIC ACID (test code = FOL) 10.1 ng/mL 3.10-17.50 N CALCIUM [id number] 07:33:00* Test Item Value Reference Range Interpretation Comments CALCIUM IONIZED (test code = KARLEY) mmol/L 1.12-1.32 [id number] 07:33:00* Test Item Value Reference Range Interpretation Comments FERRITIN (test code = EBONY) 849 ng/mL 8-388 H C REACTIVE [id number] 07:25:00* Test Item Value Reference Range Interpretation Comments C REACTIVE PROTEIN (test code = CRP) 9.84 mg/dL 0-0.3 H BASIC METABOLIC [id number] 03:46:00* Test Item Value Reference Range Interpretation Comments SODIUM (test code = NA) 127 mmol/L 136-145 L POTASSIUM (test code = K) 5.1 mmol/L 3.5-5.1 N CHLORIDE (test code = CL) 96.0 mmol/L 98-107 L CARBON DIOXIDE (test code = CO2) 19.0 mmol/L 21-32 L ANION GAP (test code = GAP) 17.1 10-20 N GLUCOSE (test code = GLU) 114 mg/dL 74-106 H BLOOD UREA NITROGEN (test code = BUN) 52 mg/dL 7-18 H GLOMERULAR FILTRATION RATE (test code = GFR) 34 mL/min >=60 Estimated GFR by using Modified MDRD formula.Chronic kidney disease is defined as either kidney damageor GFR <60 mL/min/1.73 m2 for >3 months. CREATININE (test code = CREAT) 2.10 mg/dL 0.7-1.3 H BUN/CREATININE RATIO (test code = BUN/CREA) 24.8 10-20 H CALCIUM (test code = CA) 11.1 mg/dL 8.5-10.1 H HEPATIC FUNCTION [id number] 03:46:00* Test Item Value Reference Range Interpretation Comments TOTAL PROTEIN (test code = PROT) 10.7 gram/dL 6.4-8.2 H ALBUMIN (test code = ALB) 3.6 g/dL 3.4-5.0 N GLOBULIN (test code = GLOB) 7.1 gram/dL 2.7-4.2 H ALBUMIN/GLOBULIN RATIO (test code = A/G) 0.5 0.75-1.50 L BILIRUBIN TOTAL (test code = BILT) 0.50 mg/dL 0.0-1.0 N BILIRUBIN DIRECT (test code = BILD) 0.18 mg/dL 0.0-0.20 N SGOT/AST (test code = AST) 40 IUnit/L 15-37 H SGPT/ALT (test code = ALT) 61 IUnit/L 12-78 N ALKALINE PHOSPHATASE TOTAL (test code = ALKP) 86 IUnit/L 45-117 N Note change in reference range due to change in reagent. [id number] 03:46:00* Test Item Value Reference Range Interpretation Comments LIPASE (test code = LIP) 237 U/L 73.0-393.0 N [id number] 03:46:00* Test Item Value Reference Range Interpretation Comments TROPONIN-I (test code = TROPI) <0.015 ng/mL 0-0.045 N PROTHROMBIN [id number] 03:28:00* Test Item Value Reference Range Interpretation Comments PROTHROMBIN TIME PATIENT (test code = PTP) 13.1 seconds 9.0-14.0 N INTERNATIONAL NORMAL RATIO (test code = INR) 1.1 0.8-1.2 N The therapeutic range for oral anticoagulant therapy formost indications is an international normalized ratio (INR)of between 2.0 and 3.0. The recommended therapeutic INRrange for various clinical situations is listed below: Clinical Situation INR range Pulmonary e mbolism treatment (2.0-3.0)Venous thrombosis treatmentVenous thrombosis prophylaxis (high risk surgery)Prevention of systemic embolism from: Acute myocardial infarction Valvular heart disease Atrial fibrillation Mechanical prosthetic heart valves (2.5-3.5) IS PATIENT ON ANTICOAGULANTS? NTHROMBOPLASTIN TIME [id number] 03:28:00* Test Item Value Reference Range Interpretation Comments THROMBOPLASTIN TIME PARTIAL (test code = PTT) 30.1 seconds 25.0-36. 5 N IS PATIENT ON ANTICOAGULANTS? NBASIC METABOLIC [id number] 03:27:00* Test Item Value Reference Range Interpretation Comments SODIUM (test code = NA) mmol/L 136-145 POTASSIUM (test code = K) mmol/L 3.5-5.1 CHLORIDE (test code = CL) mmol/L 98-107 CARBON DIOXIDE (test code = CO2) mmol/L 21-32 ANION GAP (test code = GAP) 10-20 GLUCOSE (test code = GLU) mg/dL 74-106 BLOOD UREA NITROGEN (test code = BUN) mg/dL 7-18 GLOMERULAR FILTRATION RATE (test code = GFR) mL/min >=60 CREATININE (test code = CREAT) mg/dL 0.7-1.3 BUN/CREATININE RATIO (test code = BUN/CREA) 10-20 CALCIUM (test code = CA) 11.1 mg/dL 8.5-10.1 H HEPATIC FUNCTION [id number] 03:27:00* Test Item Value Reference Range Interpretation Comments TOTAL PROTEIN (test code = PROT) gram/dL 6.4-8.2 ALBUMIN (test code = ALB) g/dL 3.4-5.0 GLOBULIN (test code = GLOB) gram/dL 2.7-4.2 ALBUMIN/GLOBULIN RATIO (test code = A/G) 0.75-1.50 BILIRUBIN TOTAL (test code = BILT) mg/dL 0.0-1.0 BILIRUBIN DIRECT (test code = BILD) mg/dL 0.0-0.20 SGOT/AST (test code = AST) IUnit/L 15-37 SGPT/ALT (test code = ALT) IUnit/L 12-78 ALKALINE PHOSPHATASE TOTAL (test code = ALKP) IUnit/L 45-117 [id number] 03:27:00* Test Item Value Reference Range Interpretation Comments LIPASE (test code = LIP) U/L 73.0-393.0 [id number] 03:27:00* Test Item Value Reference Range Interpretation Comments TROPONIN-I (test code = TROPI) ng/mL 0-0.045 CBC W/O [id number] 03:21:00* Test Item Value Reference Range Interpretation Comments WHITE BLOOD CELL (test code = WBC) 16.3 K/mm3 4.5-12.5 H RED BLOOD CELL (test code = RBC) 4.97 mill/mm3 4.0-5.8 N HEMOGLOBIN (test code = HGB) 13.7 gram/dL 13.0-17.5 N HEMATOCRIT (test code = HCT) 42.4 % 42.0-52.0 N MEAN CELL VOLUME (test code = MCV) 85.3 fL 80-98 N MEAN CELL HGB (test code = MCH) 27.6 picogram 27.0-33.0 N MEAN CELL HGB CONCETRATION (test code = MCHC) 32.3 gram/dL 33.0-36. 0 L RED CELL DISTRIBUTION WIDTH (test code = RDW) 13.5 % 11.6-16. 2 N PLATELET COUNT (test code = PLT) 906 K/mm3 150-450 H RESULT VERIFIED BY REPEAT ANALYSIS MEAN PLATELET VOLUME (test code = MPV) 9.7 fL 6.7-11.0 N URINALYSIS [id number] 03:14:00* Test Item Value Reference Range Interpretation Comments UA COLOR (test code = COLU) YELLOW YELLOW UA APPEARANCE (test code = APPU) Cloudy CLEAR A UA GLUCOSE DIPSTICK (test code = DGLUU) NEGATIVE mg/dL NEGATIVE UA BILIRUBIN DIPSTICK (test code = BILU) NEGATIVE mg/dL NEGATIVE UA KETONE DIPSTICK (test code = KETU) NEGATIVE mg/dL NEGATIVE UA SPECIFIC GRAVITY (test code = SGU) 1.020 1.001-1.035 UA BLOOD DIPSTICK (test code = YA) Negative mg/dL NEGATIVE UA PH DIPSTICK (test code = SYLVIE) 5.0 5.0-8.0 UA PROTEIN DIPSTICK (test code = PROU) 30 (1+) mg/dL NEGATIVE A UA UROBILINIOGEN DIPSTICK (test code = URO) Normal mg/dL NEGATIVE UA NITRITE DIPSTICK (test code = CASSANDRA) NEGATIVE NEGATIVE UA LEUKOCYTE ESTERASE W REFLEX (test code = LEUUR) NEGATIVE Cher/uL NEGATIVE UA WBC (test code = WBCU) 0-5 per HPF 0-5 UA RBC (test code = RBCU) 0-2 #/HPF 0-5 UA EPITHELIAL CELLS (test code = EPIU) MOD per HPF FEW UA BACTERIA (test code = BACU) NONE SEEN #/HPF NONE UA HYALINE CAST (test code = HYALU) >20 #/LPF 0-5 A UA MUCUS (test code = MUCU) FEW #/LPF FEW Urine Source? Clean CatchURINALYSIS [id number] 03:03:00* Test Item Value Reference Range Interpretation Comments UA COLOR (test code = COLU) YELLOW YELLOW UA APPEARANCE (test code = APPU) Cloudy CLEAR A UA GLUCOSE DIPSTICK (test code = DGLUU) NEGATIVE mg/dL NEGATIVE UA BILIRUBIN DIPSTICK (test code = BILU) NEGATIVE mg/dL NEGATIVE UA KETONE DIPSTICK (test code = KETU) NEGATIVE mg/dL NEGATIVE UA SPECIFIC GRAVITY (test code = SGU) 1.020 1.001-1.035 UA BLOOD DIPSTICK (test code = YA) Negative mg/dL NEGATIVE UA PH DIPSTICK (test code = SYLVIE) 5.0 5.0-8.0 UA PROTEIN DIPSTICK (test code = PROU) 30 (1+) mg/dL NEGATIVE A UA UROBILINIOGEN DIPSTICK (test code = URO) Normal mg/dL NEGATIVE UA NITRITE DIPSTICK (test code = CASSANDRA) NEGATIVE NEGATIVE UA LEUKOCYTE ESTERASE W REFLEX (test code = LEUUR) NEGATIVE Cher/uL NEGATIVE UA WBC (test code = WBCU) per HPF 0-5 UA RBC (test code = RBCU) per HPF 0-5 UA EPITHELIAL CELLS (test code = EPIU) per HPF Few UA BACTERIA (test code = BACU) per HPF NONE Urine Source? Clean Catch- CT ABD PELVIS W/O [id number] 02:16:00 Name: PAN BARRIOS [facility] : 1975 Age/S: 44 / M [address] [facility] Unit #: [id number] Loc: [place] [address] Phys: Nhan Acuna MD Acct: [id number] Di s Date: Status: REG ER PHONE #: Exam Date: 04/12/2019 0150 FAX #: [phone] Reason: abdominal pain EXAMS: CPT CODE: [id number] CT ABD PELVIS W/O CONT 26607 EXAM: CT ABDOMEN AND PELV IS WITHOUT IV CONTRAST DICTATION LOCATION: 8 HIST ORY: Male, 44 years of age with abdominal pain TECHNIQUE: Contrast: No IV contrast was given. No GI contrast was given. Noncontra st phase: Abdomen and pelvis Reconstructions: Coronal and sagittal planes One or more of the following dose reduction techniques were used: Automated exposure control; adjustment of the mA and/or kV according to the patient size; and/or use of iterative reconstruction technique. COMPARISON: Ultrasound of abdomen performed 04/01/2019 FINDI NGS: Statements: Lack of intravenous contrast compromises evaluation of abdominopelvic organs and vasculature. Lower thorax: Unremark able. Hepatobiliary: The liver is normal without focal lesion. The gallbladder is normal. No biliary dilation. Pancreas: Viridiana l. Spleen: Normal. Adrenals: Normal. Genitourinary: No renal calculus or hydronephrosis. No ureteral stones. Urinary bladder is unremarkable. The visualized reproductive organs are un remarkable. Gastrointestinal: There is a small hiatal hernia. No b owel wall thickening, bowel obstruction or perienteric inflammation. The appendix is normal. Large amount stool seen in colon without focal im paction. Vascular: No aortic aneurysm. IVC unremarkable. Lymphatics: A few mildly enlarged lymph nodes are seen in both event marketing intern al and external iliac chains and both inguinal regions, largest PAGE 1 Signed Report (CONTINUED) Name: PAN BARRIOS [facility] : 1975 Age/ S: 44 / M [address] [facility] Unit #: [id number] Loc: [place] [address] Phys: Samantha Acuna MD Acct: [id number] Dis Date: Status: REG ER PHONE #: [phone] Exam Date: 04/12/2019 0150 FAX #: [phone] Reason: abdominal pain EXAMS: CPT CODE: [id number] CT ABD PELVIS W/O CONT 48012 <Continued> on the right measuring up to 2.3 cm diameter. No significant upper abdominal adenopathy. Bones/Soft Tissues: No acute osseous findings. No ventral hernias. Peritoneum/Other: No free intraperitoneal air. No free intraperitoneal fluid. IMPRESSION: 1. Mild pelvic lymphadenopathy, probably reactive. 2. Fecal retention. 3. Small hiatal hernia. at 0216 Reported and signed by: Nidia Ruiz MD CC: Samantha Acuna MD Technologist:DONNA MAURER, RT CTDI: DLP: Trnscb Date/Time: 04/12/2019 (215) [email or web address] Orig Print D/T: S: 04/12/2019 (218) PAGE 2 Signed Report - XR CHEST 1 [id number] 02:09:00 FAX: Samantha Anguiano [phone] [place]: St: REG Name: PAN BEAUCHAMP [facility] : [birth year] Age/S: 44/M [address] [facility] Unit #: [id number] Loc: [place] [address] Phys: Samantha Acuna MD Acct: [id number] Dis Date: Status: REG ER PHONE #: [phone] Exam Date: 04/12/2019 0153 FAX #: [phone] Reason: ABDOMINAL PAIN EXAMS: CPT CODE: [id number] XR CHEST 1 V 76954 DICTATION LOCATION: H48 HISTORY: Male, 44 years of age with abdominal pain EXAM: CHEST X-RAY, ONE VIEW COMPARISON: 03/30/2019 COMMENT: Frontal view of the chest is provided. No focal infiltrate, consolidation, mass lesion, or effusion is seen. Cardiac silhouette is within normal li mits. No acute bony abnormalities. IMPRESSION: No acute card iopulmonary disease. Electronically Signed by Nidia Ruiz MD on at 0209 Reported and signed by: Nidia Ruiz MD CC: Samantha Acuna MD Technologist: RT Edwar BELLE [facility] Date/Time/By: 04/12/2019 (020) : By: Km Orig Print D/T: S: 04/12/2019 (3606) PAGE 1 Sera d Report [id number] 07:48:00* Test Item Value Reference Range Interpretation Comments GLUBED (test code = GLUBED) 83 mg/dL 74-106 N Performed by certified dinkey operator at [facility] [id number] 20:26:00* Test Item Value Reference Range Interpretation Comments GLUBED (test code = GLUBED) 90 mg/dL 74-106 N Performed by certified dinkey operator at [facility] [id number] 07:54:00* Test Item Value Reference Range Interpretation Comments GLUBED (test code = GLUBED) 84 mg/dL 74-106 N Performed by certified dinkey operator at [facility] PLATELET [id number] 06:49:00* Test Item Value Reference Range Interpretation Comments PLATELET COUNT (test code = PLT) 698 K/mm3 150-450 H BASIC METABOLIC [id number] 07:36:00* Test Item Value Reference Range Interpretation Comments SODIUM (test code = NA) 133 mmol/L 136-145 L POTASSIUM (test code = K) 4.0 mmol/L 3.5-5.1 N CHLORIDE (test code = CL) 101.0 mmol/L 98-107 N CARBON DIOXIDE (test code = CO2) 22.0 mmol/L 21-32 N ANION GAP (test code = GAP) 14.0 10-20 N GLUCOSE (test code = GLU) 83 mg/dL 74-106 N BLOOD UREA NITROGEN (test code = BUN) 13 mg/dL 7-18 N GLOMERULAR FILTRATION RATE (test code = GFR) > 60 mL/min >=60 Estimated GFR by using Modified MDRD formula.Chronic kidney disease is defined as either kidney damageor GFR <60 mL/min/1.73 m2 for >3 months. CREATININE (test code = CREAT) 0.80 mg/dL 0.7-1.3 N BUN/CREATININE RATIO (test code = BUN/CREA) 16.3 10-20 N CALCIUM (test code = CA) 8.4 mg/dL 8.5-10.1 L BILIRUBIN [id number] 07:36:00* Test Item Value Reference Range Interpretation Comments BILIRUBIN DIRECT (test code = BILD) 0.24 mg/dL 0.0-0.20 H [id number] 07:36:00* Test Item Value Reference Range Interpretation Comments SGOT/AST (test code = AST) 57 IUnit/L 15-37 H BASIC METABOLIC [id number] 07:31:00* Test Item Value Reference Range Interpretation Comments SODIUM (test code = NA) 133 mmol/L 136-145 L POTASSIUM (test code = K) 4.0 mmol/L 3.5-5.1 N CHLORIDE (test code = CL) 101.0 mmol/L 98-107 N CARBON DIOXIDE (test code = CO2) mmol/L 21-32 ANION GAP (test code = GAP) 10-20 GLUCOSE (test code = GLU) mg/dL 74-106 BLOOD UREA NITROGEN (test code = BUN) mg/dL 7-18 GLOMERULAR FILTRATION RATE (test code = GFR) mL/min >=60 CREATININE (test code = CREAT) mg/dL 0.7-1.3 BUN/CREATININE RATIO (test code = BUN/CREA) 10-20 CALCIUM (test code = CA) mg/dL 8.5-10.1 BILIRUBIN [id number] 07:31:00* Test Item Value Reference Range Interpretation Comments BILIRUBIN DIRECT (test code = BILD) mg/dL 0.0-0.20 [id number] 07:31:00* Test Item Value Reference Range Interpretation Comments SGOT/AST (test code = AST) IUnit/L 15-37 CBC W/AUTO [id number] 07:07:00* Test Item Value Reference Range Interpretation Comments WHITE BLOOD CELL (test code = WBC) 8.0 K/mm3 4.5-12.5 N RED BLOOD CELL (test code = RBC) 3.66 mill/mm3 4.0-5.8 L HEMOGLOBIN (test code = HGB) 10.2 gram/dL 13.0-17.5 L HEMATOCRIT (test code = HCT) 32.1 % 42.0-52.0 L MEAN CELL VOLUME (test code = MCV) 87.7 fL 80-98 N MEAN CELL HGB (test code = MCH) 27.9 picogram 27.0-33.0 N MEAN CELL HGB CONCETRATION (test code = MCHC) 31.8 gram/dL 33.0-36. 0 L RED CELL DISTRIBUTION WIDTH (test code = RDW) 13.4 % 11.6-16. 2 N RED CELL DISTRIBUTION WIDTH SD (test code = RDW-SD) 43.2 fL 37 .0-51.0 N PLATELET COUNT (test code = PLT) 418 K/mm3 150-450 N MEAN PLATELET VOLUME (test code = MPV) 9.8 fL 6.7-11.0 N NEUTROPHIL % (test code = NT%) 71.7 % 39.0-69.0 H IMMATURE GRANULOCYTE % (test code = IG%) 1.8 % 0.0-5.0 N LYMPHOCYTE % (test code = LY%) 16.0 % 25.0-55.0 L MONOCYTE % (test code = MO%) 8.0 % 0.0-10.0 N EOSINOPHIL % (test code = EO%) 2.1 % 0.0-5.0 N BASOPHIL % (test code = BA%) 0.4 % 0.0-1.0 N NUCLEATED RBC % (test code = NRBC%) 0.0 % 0-0 N NEUTROPHIL # (test code = NT#) 5.74 K/mm3 1.8-7.7 N IMMATURE GRANULOCYTE # (test code = IG#) 0.14 x10 3/uL 0-0.03 H LYMPHOCYTE # (test code = LY#) 1.28 K/mm3 1.0-5.0 N MONOCYTE # (test code = MO#) 0.64 K/mm3 0-0.8 N EOSINOPHIL # (test code = EO#) 0.17 K/mm3 0.0-0.5 N BASOPHIL # (test code = BA#) 0.03 K/mm3 0.0-0.2 N NUCLEATED RBC # (test code = NRBC#) 0.00 K/mm3 0.0-0.1 N MANUAL DIFF REQUIRED (test code = MDIFF) NO SYNOVIAL FLD CELL [id number] 09:43:00* Test Item Value Reference Range Interpretation Comments SYNOVIAL FLD COLOR (test code = COLSY) YELLOW SYNOVIAL FLD APPEARANCE (test code = APPSY) CLOUDY SYNOVIAL FLD WBC (test code = WBCSY) 15996 per uL 0-200 H QC performed - Cell count on both sides of chamber agreeswithin 20% ? Y SYNOVIAL FLD RBC (test code = RBCSY) 3000 per uL SYNOVIAL FLD POLY (test code = POLYSY) 88.0 % SYNOVIAL FLD LYMPHOCYTE (test code = LYMPHSY) 11.0 % SYNOVIAL FLD MACROPHAGE (test code = MACSY) 1.0 % TOTAL CELLS COUNTED ON DIFF (test code = TOTCELLFL) 100 cells REVIEWED BY (test code = REVIEW) ELAN CASAREZ PATHOLOGIST REVIEWED SYNOVIAL FLD [id number] 09:43:00* Test Item Value Reference Range Interpretation Comments SYNOVIAL FLD CRYSTALS (test code = CRYSY) Note: None seen Monosodium urate crystals observed by Polarized Light Microscopy.Performed At: [address] [id number] Holt MD Ph:[phone] SYNOVIAL FLD [id number] 09:43:00* Test Item Value Reference Range Interpretation Comments SYNOVIAL FLD GLUCOSE (test code = GLUSY) 28 mg/dL SYNOVIAL FLD TOTAL [id number] 09:43:00* Test Item Value Reference Range Interpretation Comments SYNOVIAL FLD TOTAL PROTEIN (test code = PROTSY) 5.4 gram/dL ACUTE HEPATITIS [id number] 08:10:00* Test Item Value Reference Range Interpretation Comments AB HEPATITIS A IGM (test code = HAVMAB) Negative Negative AG HEPAT B SURF (test code = HBSAG) Negative Negative HEPATITIS B CORE ANTIBODY,IGM (test code = HBCMAB) Negative Neg ative AB HEPATITIS C (test code = HCVAB) <0.1 0.0-0.9 INFCE Result Units: s/co ratio Negative: < 0.8 Indeterminate: 0.8 - 0.9 Positive: > 0.9 The CDC recommends that a positive HCV antibody result be followed up with a HCV Nucleic Acid Amplification test (952407).Performed At: [address] [id number] Holt MD Ph:[phone] SYNOVIAL FLD CELL [id number] 11:08:00* Test Item Value Reference Range Interpretation Comments SYNOVIAL FLD COLOR (test code = COLSY) YELLOW SYNOVIAL FLD APPEARANCE (test code = APPSY) CLOUDY SYNOVIAL FLD WBC (test code = WBCSY) 69315 per uL 0-200 H QC performed - Cell count on both sides of chamber agreeswithin 20% ? Y SYNOVIAL FLD RBC (test code = RBCSY) 3000 per uL SYNOVIAL FLD POLY (test code = POLYSY) 88.0 % SYNOVIAL FLD LYMPHOCYTE (test code = LYMPHSY) 11.0 % SYNOVIAL FLD MACROPHAGE (test code = MACSY) 1.0 % TOTAL CELLS COUNTED ON DIFF (test code = TOTCELLFL) 100 cells REVIEWED BY (test code = REVIEW) PATHOLOGIST SYNOVIAL FLD [id number] 11:08:00* Test Item Value Reference Range Interpretation Comments SYNOVIAL FLD CRYSTALS (test code = CRYSY) Note: None seen Monosodium urate crystals observed by Polarized Light Microscopy.Performed At: [address] [id number] Kyle L MD Ph:[phone] SYNOVIAL FLD [id number] 11:08:00* Test Item Value Reference Range Interpretation Comments SYNOVIAL FLD GLUCOSE (test code = GLUSY) 28 mg/dL SYNOVIAL FLD TOTAL [id number] 11:08:00* Test Item Value Reference Range Interpretation Comments SYNOVIAL FLD TOTAL PROTEIN (test code = PROTSY) 5.4 gram/dL BLOOD UREA [id number] 05:33:00* Test Item Value Reference Range Interpretation Comments BLOOD UREA NITROGEN (test code = BUN) 14 mg/dL 7-18 N [id number] 05:33:00* Test Item Value Reference Range Interpretation Comments CREATININE (test code = CREAT) 0.80 mg/dL 0.7-1.3 N BLOOD UREA [id number] 05:32:00* Test Item Value Reference Range Interpretation Comments BLOOD UREA NITROGEN (test code = BUN) 14 mg/dL 7-18 N [id number] 05:32:00* Test Item Value Reference Range Interpretation Comments CREATININE (test code = CREAT) mg/dL 0.7-1.3 VANCOMYCIN [id number] 18:10:00* Test Item Value Reference Range Interpretation Comments VANCOMYCIN TROUGH (test code = VANCT) 19.2 ug/mL 10-20 N - US ABDOMEN [id number] 16:25:00 Name: SOPHIEPAN RAMSES [facility] : 1975 Age/S: 44 / M [address] [facility] Unit #: [id number] Loc: [place] [address] Phys: Shira Mckeon DOCTOR OSTEOPATHIC Acct: [id number] Dis Date: Status: ADM IN PHONE #: [phone] Exam Date: 04/01/2019 1611 FAX #: [phone] Reason: elevated bili EXAMS: CPT CODE: [id number] US ABDOMEN COMPLETE 78568 REASON FOR EXAM: elevated bili EXAM ORDER DATE: 04/01/2019 11:26 AM Attending Too: Shira Mckeon NP PROCEDURE: - US ABDOMEN COMPLETE Technique: Grayscale and color Doppler images of the abdomen. Comparison study: None FINDINGS: Aorta and IVC: Patent and grossly normal in caliber. Liver: Size: 18.9 cm craniocaudally Parenchyma and contour: Smooth contour. Normal echogenicity. Cysts and/or masses: None. Intrahepatic bile ducts: No intrahepatic biliary ductal dilation Common bile duct: 5.1 mm in diameter. No echogenic filling defects in visualized duct. Gallbladder: Underdistended Stones/sludge: No intraluminal stones or sludge. Wall: 3.9 mm in thickness. No discontinuity. No polyps. No pericholecystic fluid. No hyperemia. Sonographic Fierro's sign: Negative Portal vein: Portal vein caliber is within normal limits. Portal vein is patent with hepatopetal flow. Pancreas: Incompletely visualized. However the visualized portions are grossly within normal limits. Right kidney: parenchyma echogenicity: Normal echogenicity size: 11.3 x 5.4 x 5.0 cm stones: none cysts/masses: none hydronephrosis: none PAGE 1 Signed Report (CONTINUED) Name: PAN BARRIOS [facility] : 1975 Age/S: 44 / M [address] [facility] Unit #: [id number] Loc: [place] [address] Phys: Shira Mckeon NP Acct: [id number] Dis Date: Status: ADM IN PHONE #: [phone] Exam Date: 04/01/2019 1611 FAX #: [phone] Reason: elevated bili EXAMS: CPT CODE: [id number] US ABDOMEN COMPLETE 26931 < Continued> Left kidney: parenchyma echogenicity: Normal echogenicity size: 12.2 x 5.9 x 5.4 cm stones: none cysts/masses: none hydronephrosis: none Spleen: size: 14.1 x 6.7 x 6.5 cm cysts/masses: Parenchyma is sonographically unremarkable. Ascites/pleural effusions: None IMPRESSION: Sonographically unremarkable abdomen. Gallbladder wall is mildly thickened however this may be due to underdistention. Location: [facility] at 1625 Reported and signed by: Mukund Dumont MD CC: Jasson Bo MD; Shira Mckeon NP Technologist: REA LONG Trnscb Date/Time: 04/01/2019 (1624) [id number] Orig Print D/T: S: 04/01/2019 (8876) Probe: PAGE 2 Signed Report BASIC METABOLIC [id number] 03:53:00* Test Item Value Reference Range Interpretation Comments SODIUM (test code = NA) 137 mmol/L 136-145 N POTASSIUM (test code = K) 3.7 mmol/L 3.5-5.1 N CHLORIDE (test code = CL) 103.0 mmol/L 98-107 N CARBON DIOXIDE (test code = CO2) 27.0 mmol/L 21-32 N ANION GAP (test code = GAP) 10.7 10-20 N GLUCOSE (test code = GLU) 106 mg/dL 74-106 N BLOOD UREA NITROGEN (test code = BUN) 16 mg/dL 7-18 N GLOMERULAR FILTRATION RATE (test code = GFR) > 60 mL/min >=60 Estimated GFR by using Modified MDRD formula.Chronic kidney disease is defined as either kidney damageor GFR <60 mL/min/1.73 m2 for >3 months. CREATININE (test code = CREAT) 0.90 mg/dL 0.7-1.3 N BUN/CREATININE RATIO (test code = BUN/CREA) 17.8 10-20 N CALCIUM (test code = CA) 8.8 mg/dL 8.5-10.1 N HEPATIC FUNCTION [id number] 03:53:00* Test Item Value Reference Range Interpretation Comments TOTAL PROTEIN (test code = PROT) 7.1 gram/dL 6.4-8.2 N ALBUMIN (test code = ALB) 2.1 g/dL 3.4-5.0 L GLOBULIN (test code = GLOB) 5.0 gram/dL 2.7-4.2 H ALBUMIN/GLOBULIN RATIO (test code = A/G) 0.4 0.75-1.50 L BILIRUBIN TOTAL (test code = BILT) 0.70 mg/dL 0.0-1.0 N BILIRUBIN DIRECT (test code = BILD) 0.37 mg/dL 0.0-0.20 H SGOT/AST (test code = AST) 44 IUnit/L 15-37 H SGPT/ALT (test code = ALT) 39 IUnit/L 12-78 N ALKALINE PHOSPHATASE TOTAL (test code = ALKP) 72 IUnit/L 45-117 N Note change in reference range due to change in reagent. [id number] 03:53:00* Test Item Value Reference Range Interpretation Comments MAGNESIUM (test code = MAG) 2.6 mg/dL 1.8-2.4 H BASIC METABOLIC [id number] 03:46:00* Test Item Value Reference Range Interpretation Comments SODIUM (test code = NA) 137 mmol/L 136-145 N POTASSIUM (test code = K) 3.7 mmol/L 3.5-5.1 N CHLORIDE (test code = CL) 103.0 mmol/L 98-107 N CARBON DIOXIDE (test code = CO2) mmol/L 21-32 ANION GAP (test code = GAP) 10-20 GLUCOSE (test code = GLU) mg/dL 74-106 BLOOD UREA NITROGEN (test code = BUN) mg/dL 7-18 GLOMERULAR FILTRATION RATE (test code = GFR) mL/min >=60 CREATININE (test code = CREAT) mg/dL 0.7-1.3 BUN/CREATININE RATIO (test code = BUN/CREA) 10-20 CALCIUM (test code = CA) mg/dL 8.5-10.1 HEPATIC FUNCTION [id number] 03:46:00* Test Item Value Reference Range Interpretation Comments TOTAL PROTEIN (test code = PROT) gram/dL 6.4-8.2 ALBUMIN (test code = ALB) g/dL 3.4-5.0 GLOBULIN (test code = GLOB) gram/dL 2.7-4.2 ALBUMIN/GLOBULIN RATIO (test code = A/G) 0.75-1.50 BILIRUBIN TOTAL (test code = BILT) mg/dL 0.0-1.0 BILIRUBIN DIRECT (test code = BILD) mg/dL 0.0-0.20 SGOT/AST (test code = AST) IUnit/L 15-37 SGPT/ALT (test code = ALT) IUnit/L 12-78 ALKALINE PHOSPHATASE TOTAL (test code = ALKP) IUnit/L 45-117 [id number] 03:46:00* Test Item Value Reference Range Interpretation Comments MAGNESIUM (test code = MAG) mg/dL 1.8-2.4 CBC W/AUTO [id number] 03:23:00* Test Item Value Reference Range Interpretation Comments WHITE BLOOD CELL (test code = WBC) 7.2 K/mm3 4.5-12.5 N RED BLOOD CELL (test code = RBC) 3.65 mill/mm3 4.0-5.8 L HEMOGLOBIN (test code = HGB) 10.2 gram/dL 13.0-17.5 L HEMATOCRIT (test code = HCT) 32.1 % 42.0-52.0 L MEAN CELL VOLUME (test code = MCV) 87.9 fL 80-98 N MEAN CELL HGB (test code = MCH) 27.9 picogram 27.0-33.0 N MEAN CELL HGB CONCETRATION (test code = MCHC) 31.8 gram/dL 33.0-36. 0 L RED CELL DISTRIBUTION WIDTH (test code = RDW) 13.6 % 11.6-16. 2 N RED CELL DISTRIBUTION WIDTH SD (test code = RDW-SD) 43.7 fL 37 .0-51.0 N PLATELET COUNT (test code = PLT) 350 K/mm3 150-450 N MEAN PLATELET VOLUME (test code = MPV) 9.6 fL 6.7-11.0 N NEUTROPHIL % (test code = NT%) 71.7 % 39.0-69.0 H IMMATURE GRANULOCYTE % (test code = IG%) 1.5 % 0.0-5.0 N LYMPHOCYTE % (test code = LY%) 16.0 % 25.0-55.0 L MONOCYTE % (test code = MO%) 8.9 % 0.0-10.0 N EOSINOPHIL % (test code = EO%) 1.5 % 0.0-5.0 N BASOPHIL % (test code = BA%) 0.4 % 0.0-1.0 N NUCLEATED RBC % (test code = NRBC%) 0.0 % 0-0 N NEUTROPHIL # (test code = NT#) 5.17 K/mm3 1.8-7.7 N IMMATURE GRANULOCYTE # (test code = IG#) 0.11 x10 3/uL 0-0.03 H LYMPHOCYTE # (test code = LY#) 1.15 K/mm3 1.0-5.0 N MONOCYTE # (test code = MO#) 0.64 K/mm3 0-0.8 N EOSINOPHIL # (test code = EO#) 0.11 K/mm3 0.0-0.5 N BASOPHIL # (test code = BA#) 0.03 K/mm3 0.0-0.2 N NUCLEATED RBC # (test code = NRBC#) 0.00 K/mm3 0.0-0.1 N SED RATE [id number] 19:34:00* Test Item Value Reference Range Interpretation Comments SED RATE WESTERGREN (test code = SEDW) 124 mm/hr 0-15 H SED [id number] 19:34:00* Test Item Value Reference Range Interpretation Comments SED RATE (test code = SEDW) 124 mm/hr 0-15 H WINTROBE METHOD: NORMAL RANGE FOR MEN: 0-9 MM/HR WOMAN: 0-20 MM/HR SYNOVIAL FLD CELL [id number] 17:57:00* Test Item Value Reference Range Interpretation Comments SYNOVIAL FLD COLOR (test code = COLSY) YELLOW SYNOVIAL FLD APPEARANCE (test code = APPSY) CLOUDY SYNOVIAL FLD WBC (test code = WBCSY) 19060 per uL 0-200 H QC performed - Cell count on both sides of chamber agreeswithin 20% ? Y SYNOVIAL FLD RBC (test code = RBCSY) 3000 per uL SYNOVIAL FLD POLY (test code = POLYSY) 88.0 % SYNOVIAL FLD LYMPHOCYTE (test code = LYMPHSY) 11.0 % SYNOVIAL FLD MACROPHAGE (test code = MACSY) 1.0 % TOTAL CELLS COUNTED ON DIFF (test code = TOTCELLFL) 100 cells REVIEWED BY (test code = REVIEW) PATHOLOGIST SYNOVIAL FLD [id number] 17:57:00* Test Item Value Reference Range Interpretation Comments SYNOVIAL FLD CRYSTALS (test code = CRYSY) CRYSTALS NONE SEEN SYNOVIAL FLD [id number] 17:57:00* Test Item Value Reference Range Interpretation Comments SYNOVIAL FLD GLUCOSE (test code = GLUSY) 28 mg/dL SYNOVIAL FLD TOTAL [id number] 17:57:00* Test Item Value Reference Range Interpretation Comments SYNOVIAL FLD TOTAL PROTEIN (test code = PROTSY) 5.4 gram/dL C REACTIVE [id number] 17:20:00* Test Item Value Reference Range Interpretation Comments C REACTIVE PROTEIN (test code = CRP) 26.60 mg/dL 0-0.[address] [facility]NOVIAL FLD CELL [id number] 16:10:00* Test Item Value Reference Range Interpretation Comments FLUID TOTAL CELLS (test code = TCFL) cells/uL >0 SYNOVIAL FLD COLOR (test code = COLSY) YELLOW SYNOVIAL FLD APPEARANCE (test code = APPSY) CLOUDY SYNOVIAL FLD WBC (test code = WBCSY) 97418 per uL 0-200 H QC performed - Cell count on both sides of chamber agreeswithin 20% ? Y SYNOVIAL FLD RBC (test code = RBCSY) 3000 per uL TOTAL CELLS COUNTED ON DIFF (test code = TOTCELLFL) cells REVIEWED BY (test code = REVIEW) PATHOLOGIST SYNOVIAL FLD [id number] 16:10:00* Test Item Value Reference Range Interpretation Comments SYNOVIAL FLD CRYSTALS (test code = CRYSY) CRYSTALS NONE SEEN SYNOVIAL FLD [id number] 16:10:00* Test Item Value Reference Range Interpretation Comments SYNOVIAL FLD GLUCOSE (test code = GLUSY) 28 mg/dL SYNOVIAL FLD TOTAL [id number] 16:10:00* Test Item Value Reference Range Interpretation Comments SYNOVIAL FLD TOTAL PROTEIN (test code = PROTSY) 5.4 gram/dL SYNOVIAL FLD CELL [id number] 16:10:00* Test Item Value Reference Range Interpretation Comments SYNOVIAL FLD COLOR (test code = COLSY) YELLOW SYNOVIAL FLD APPEARANCE (test code = APPSY) CLOUDY SYNOVIAL FLD WBC (test code = WBCSY) 39607 per uL 0-200 H QC performed - Cell count on both sides of chamber agreeswithin 20% ? Y SYNOVIAL FLD RBC (test code = RBCSY) 3000 per uL TOTAL CELLS COUNTED ON DIFF (test code = TOTCELLFL) cells REVIEWED BY (test code = REVIEW) PATHOLOGIST SYNOVIAL FLD [id number] 16:10:00* Test Item Value Reference Range Interpretation Comments SYNOVIAL FLD CRYSTALS (test code = CRYSY) CRYSTALS NONE SEEN SYNOVIAL FLD [id number] 16:10:00* Test Item Value Reference Range Interpretation Comments SYNOVIAL FLD GLUCOSE (test code = GLUSY) 28 mg/dL SYNOVIAL FLD TOTAL [id number] 16:10:00* Test Item Value Reference Range Interpretation Comments SYNOVIAL FLD TOTAL PROTEIN (test code = PROTSY) 5.4 gram/dL SYNOVIAL FLD CELL [id number] 15:08:00* Test Item Value Reference Range Interpretation Comments FLUID TOTAL CELLS (test code = TCFL) cells/uL >0 SYNOVIAL FLD COLOR (test code = COLSY) SYNOVIAL FLD APPEARANCE (test code = APPSY) SYNOVIAL FLD VOLUME (test code = VOLSY) mL SYNOVIAL FLD WBC (test code = WBCSY) per uL 0-200 SYNOVIAL FLD RBC (test code = RBCSY) per uL TOTAL CELLS COUNTED ON DIFF (test code = TOTCELLFL) cells REVIEWED BY (test code = REVIEW) PATHOLOGIST SYNOVIAL FLD [id number] 15:08:00* Test Item Value Reference Range Interpretation Comments SYNOVIAL FLD CRYSTALS (test code = CRYSY) CRYSTALS NONE SEEN SYNOVIAL FLD [id number] 15:08:00* Test Item Value Reference Range Interpretation Comments SYNOVIAL FLD GLUCOSE (test code = GLUSY) 28 mg/dL SYNOVIAL FLD TOTAL [id number] 15:08:00* Test Item Value Reference Range Interpretation Comments SYNOVIAL FLD TOTAL PROTEIN (test code = PROTSY) 5.4 gram/dL - MRI BRAIN W/O [id number] 12:43:00 FAX: Jasson Bo MD [phone] [place]: St: ADM FAX: Kevin Beavers Name: PAN BARRIOS RAMSES [facility] : 1975 Age/S: 44/M Raquel Freeman y Unit #: [id number] Loc: V.4032 [place] [address] Phys: Kevin Beavers Acct: [id number] Dis Date: Status: ADM IN PHONE #: [phone] Exam Date: 03/31/2019 1205 FAX #: [phone] Reason: Syncopy EXAMS: CPT CODE: [id number] MRI BRAIN W/O CONTRAST [id number] REASON FOR EXAM: Syncopy Exam Order Date: 03/31/2019 5:07 PM Attending Too: VICKY Adame Proced ure: - MRI BRAIN W/O CONTRAST Comparison: Noncontrast CT brain th e previous afternoon FINDINGS: Axial, sagittal, and coronal images of the head were obtained using T1, T2 weighted, inversion recovery, diff usion weighted, and gradient echo sequences. No intravenous gadolinium wa s given. The sagittal images show normal pituitary, cerebell um, and brain stem. No evidence of suprasellar mass. The axi al T2, inversion recovery, and gradient echo images show no evidence of in tra or extra axial mass. The ventricles, cisterns, and sulci are unremarka ble. No evidence of hemorrhage. The cerebellar pontine angle area is within normal limits. There is no evidence of mass noted. The axial T1 images show no evidence of mass. No evidence of acute infarct or findings to suggest white matter disease. The c oronal images show normal optic chiasm. IMPRESSION: NORMAL BRAIN . Location: [facility] at 1243 Reported and signed by: Lamont Dumont MD PAGE 1 Signed Report (CONTINUED) FAX: Jasson Bo MD [phone] [place]: St: [facility] FAX: Kevin Beavers Name: SOPHIEPAN PEARCE [facility] : 1975 Age/S: 44/M [address] Unit #: [id number] Loc: [address] [address] Phys: Kevin Beavers Acct: [id number] Dis Date: Status: ADM IN PHONE #: [phone] Exam Date: 03/31/2019 1205 FAX #: [phone] Reason: Syncopy EXAMS: CPT CODE: [id number] MRI BRAIN W/O CONTRAST [id number] <Continued> CC: Jasson Bo MD; Kevin Beavers Technologist: Rowena Hawley)(MR) Trnscrd Date/Time/By: 03/31/2019 (6633) : By: [email or web address] Orig Print D/T: S: 03/31/2019 (1617) PAGE 2 Signed Report DRUGS OF ABUSE SCREEN [id number] 06:30:00* Test Item Value Reference Range Interpretation Comments UA PH DIPSTICK (test code = SYLVIE) 6.0 5.0-8.0 URN COCAINE (test code = COCAURN) NEGATIVE <300 ng/mL URN CANNABINOIDS (test code = CANNABURN) NEGATIVE <50 ng/mL URN AMPHETAMINE (test code = AMPHETURN) NEGATIVE <1000 ng/mL URN BARBITURATE (test code = BARBITURN) NEGATIVE <200 ng/mL URN BENZODIAZEPINE (test code = BENZOURN) NEGATIVE <200 ng/mL URN OPIATES (test code = OPIATURN) NEGATIVE <300 ng/mL URN PHENCYCLIDINE (PCP) (test code = PHENCURN) NEGATIVE <25 ng/ mL URN METHADONE (test code = METHAURN) NEGATIVE <300 ng/mL DRUGS OF ABUSE SCREEN [id number] 06:02:00* Test Item Value Reference Range Interpretation Comments UA PH DIPSTICK (test code = SYLVIE) 6.0 5.0-8.0 URN COCAINE (test code = COCAURN) <300 ng/mL URN CANNABINOIDS (test code = CANNABURN) <50 ng/mL URN AMPHETAMINE (test code = AMPHETURN) <1000 ng/mL URN BARBITURATE (test code = BARBITURN) <200 ng/mL URN BENZODIAZEPINE (test code = BENZOURN) <200 ng/mL URN OPIATES (test code = OPIATURN) <300 ng/mL URN PHENCYCLIDINE (PCP) (test code = PHENCURN) <25 ng/ mL URN METHADONE (test code = METHAURN) <300 ng/mL URINALYSIS [id number] 05:54:00* Test Item Value Reference Range Interpretation Comments UA COLOR (test code = COLU) YELLOW YELLOW UA APPEARANCE (test code = APPU) CLEAR CLEAR UA GLUCOSE DIPSTICK (test code = DGLUU) NEGATIVE mg/dL NEGATIVE UA BILIRUBIN DIPSTICK (test code = BILU) NEGATIVE mg/dL NEGATIVE UA KETONE DIPSTICK (test code = KETU) NEGATIVE mg/dL NEGATIVE UA SPECIFIC GRAVITY (test code = SGU) 1.025 1.001-1.035 UA BLOOD DIPSTICK (test code = YA) 0.03 mg/dL (Trace) mg/dL NEGATI VE A UA PH DIPSTICK (test code = SYLVIE) 6.0 5.0-8.0 UA PROTEIN DIPSTICK (test code = PROU) 30 (1+) mg/dL NEGATIVE A UA UROBILINIOGEN DIPSTICK (test code = URO) 4.0 (2+) mg/dL 0.0-0.2 UA NITRITE DIPSTICK (test code = CASSANDRA) NEGATIVE NEGATIVE UA LEUKOCYTE ESTERASE W REFLEX (test code = LEUUR) NEGATIVE Cher/uL NEGATIVE UA WBC (test code = WBCU) 0-5 per HPF 0-5 UA RBC (test code = RBCU) 0-2 #/HPF 0-5 UA EPITHELIAL CELLS (test code = EPIU) FEW per HPF FEW UA BACTERIA (test code = BACU) FEW #/HPF NONE A UA HYALINE CAST (test code = HYALU) 3-5 #/LPF 0-5 UA MUCUS (test code = MUCU) FEW #/LPF FEW Urine Source? Clean CatchBASIC METABOLIC [id number] 05:11:00* Test Item Value Reference Range Interpretation Comments SODIUM (test code = NA) 133 mmol/L 136-145 L POTASSIUM (test code = K) 3.7 mmol/L 3.5-5.1 N CHLORIDE (test code = CL) 101.0 mmol/L 98-107 N CARBON DIOXIDE (test code = CO2) 25.0 mmol/L 21-32 N ANION GAP (test code = GAP) 10.7 10-20 N GLUCOSE (test code = GLU) 113 mg/dL 74-106 H BLOOD UREA NITROGEN (test code = BUN) 18 mg/dL 7-18 N GLOMERULAR FILTRATION RATE (test code = GFR) > 60 mL/min >=60 Estimated GFR by using Modified MDRD formula.Chronic kidney disease is defined as either kidney damageor GFR <60 mL/min/1.73 m2 for >3 months. CREATININE (test code = CREAT) 0.90 mg/dL 0.7-1.3 N BUN/CREATININE RATIO (test code = BUN/CREA) 20.0 10-20 N CALCIUM (test code = CA) 8.8 mg/dL 8.5-10.1 N LIPID PROFILE (CORONARY RISK)2019-03-31 05:11:00* Test Item Value Reference Range Interpretation Comments TRIGLYCERIDES (test code = TRIG) 129 mg/dL 20-150 N CHOLESTEROL (test code = CHOL) 79 mg/dL 0-200 N CHOLESTEROL/HDL RATIO (test code = CHOLHDL) 8.0 RATIO 0-4.9 H RISK ASSOCIATED WITH CHOL/HDL RATIOS: Risk Male Female1/2 AVERAGE 3.43 3.27AVERAGE 4.97 4.442X AVERAGE 9.55 7.053X AVERAGE 23.39 11.04 REFERENCE VALUE IS RELATED TO RISK LEVELS ASRECOMMENDED BY THE [facility]. HEART, LUNG, AND BLOOD INST. HDL CHOLESTEROL (test code = HDL) 9 mg/dL 40-60 L LIPOPROTEIN LDL (test code = LDL) 54 mg/dL 100-129 L Reference Interval: mg/dL mmol/L Optimal <100 <2.6Near/above optimal 100-129 2.6- 3.3Borderline High 130-159 3.4-4.1High 160-189 4.1-4.9Very High >=190 >=4.9========= This LDL result is a direct measurement.========= BASIC METABOLIC [id number] 05:03:00* Test Item Value Reference Range Interpretation Comments SODIUM (test code = NA) 133 mmol/L 136-145 L POTASSIUM (test code = K) 3.7 mmol/L 3.5-5.1 N CHLORIDE (test code = CL) 101.0 mmol/L 98-107 N CARBON DIOXIDE (test code = CO2) mmol/L 21-32 ANION GAP (test code = GAP) 10-20 GLUCOSE (test code = GLU) mg/dL 74-106 BLOOD UREA NITROGEN (test code = BUN) mg/dL 7-18 GLOMERULAR FILTRATION RATE (test code = GFR) mL/min >=60 CREATININE (test code = CREAT) mg/dL 0.7-1.3 BUN/CREATININE RATIO (test code = BUN/CREA) 10-20 CALCIUM (test code = CA) mg/dL 8.5-10.1 LIPID PROFILE (CORONARY RISK)2019-03-31 05:03:00* Test Item Value Reference Range Interpretation Comments TRIGLYCERIDES (test code = TRIG) mg/dL 20-150 CHOLESTEROL (test code = CHOL) mg/dL 0-200 CHOLESTEROL/HDL RATIO (test code = CHOLHDL) RATIO 0-4.9 HDL CHOLESTEROL (test code = HDL) mg/dL 40-60 LIPOPROTEIN LDL (test code = LDL) mg/dL 100-129 CBC W/AUTO [id number] 04:46:00* Test Item Value Reference Range Interpretation Comments WHITE BLOOD CELL (test code = WBC) 8.2 K/mm3 4.5-12.5 N RED BLOOD CELL (test code = RBC) 3.85 mill/mm3 4.0-5.8 L HEMOGLOBIN (test code = HGB) 10.8 gram/dL 13.0-17.5 L HEMATOCRIT (test code = HCT) 33.4 % 42.0-52.0 L MEAN CELL VOLUME (test code = MCV) 86.8 fL 80-98 N MEAN CELL HGB (test code = MCH) 28.1 picogram 27.0-33.0 N MEAN CELL HGB CONCETRATION (test code = MCHC) 32.3 gram/dL 33.0-36. 0 L RED CELL DISTRIBUTION WIDTH (test code = RDW) 13.3 % 11.6-16. 2 N RED CELL DISTRIBUTION WIDTH SD (test code = RDW-SD) 41.9 fL 37 .0-51.0 N PLATELET COUNT (test code = PLT) 337 K/mm3 150-450 N MEAN PLATELET VOLUME (test code = MPV) 9.7 fL 6.7-11.0 N NEUTROPHIL % (test code = NT%) 74.9 % 39.0-69.0 H IMMATURE GRANULOCYTE % (test code = IG%) 0.9 % 0.0-5.0 N LYMPHOCYTE % (test code = LY%) 13.1 % 25.0-55.0 L MONOCYTE % (test code = MO%) 10.4 % 0.0-10.0 H EOSINOPHIL % (test code = EO%) 0.5 % 0.0-5.0 N BASOPHIL % (test code = BA%) 0.2 % 0.0-1.0 N NUCLEATED RBC % (test code = NRBC%) 0.0 % 0-0 N NEUTROPHIL # (test code = NT#) 6.12 K/mm3 1.8-7.7 N IMMATURE GRANULOCYTE # (test code = IG#) 0.07 x10 3/uL 0-0.03 H LYMPHOCYTE # (test code = LY#) 1.07 K/mm3 1.0-5.0 N MONOCYTE # (test code = MO#) 0.85 K/mm3 0-0.8 H EOSINOPHIL # (test code = EO#) 0.04 K/mm3 0.0-0.5 N BASOPHIL # (test code = BA#) 0.02 K/mm3 0.0-0.2 N NUCLEATED RBC # (test code = NRBC#) 0.00 K/mm3 0.0-0.1 N [id number] 21:03:00* Test Item Value Reference Range Interpretation Comments GLUBED (test code = GLUBED) 140 mg/dL 74-106 H Performed by certified dinkey operator at [facility] [id number] 18:32:00* Test Item Value Reference Range Interpretation Comments AMYLASE (test code = RENÉE) 26 Unit/L 25-115 N [id number] 18:32:00* Test Item Value Reference Range Interpretation Comments LIPASE (test code = LIP) 103 U/L 73.0-393.0 N VITAMIN [id number] 18:32:00* Test Item Value Reference Range Interpretation Comments VITAMIN B12 (test code = VITB12) 181 pg/mL 193-986 L FOLIC [id number] 18:32:00* Test Item Value Reference Range Interpretation Comments FOLIC ACID (test code = FOL) 8.4 ng/mL 3.10-17.50 N [id number] 18:25:00* Test Item Value Reference Range Interpretation Comments AMMONIA (test code = AMM) < 10 umol/L 11-32 L PROTHROMBIN [id number] 18:24:00* Test Item Value Reference Range Interpretation Comments PROTHROMBIN TIME PATIENT (test code = PTP) 13.0 seconds 9.0-14.0 N INTERNATIONAL NORMAL RATIO (test code = INR) 1.1 0.8-1.2 N The therapeutic range for oral anticoagulant therapy formost indications is an international normalized ratio (INR)of between 2.0 and 3.0. The recommended therapeutic INRrange for various clinical situations is listed below: Clinical Situation INR range Pulmonary e mbolism treatment (2.0-3.0)Venous thrombosis treatmentVenous thrombosis prophylaxis (high risk surgery)Prevention of systemic embolism from: Acute myocardial infarction Valvular heart disease Atrial fibrillation Mechanical prosthetic heart valves (2.5-3.5) IS PATIENT ON ANTICOAGULANTS? NTHROMBOPLASTIN TIME [id number] 18:24:00* Test Item Value Reference Range Interpretation Comments THROMBOPLASTIN TIME PARTIAL (test code = PTT) 26.3 seconds 25.0-36. 5 N IS PATIENT ON ANTICOAGULANTS? NLACTIC [id number] 18:12:00* Test Item Value Reference Range Interpretation Comments LACTIC ACID (test code = LACT) 1.3 mmol/L 0.4-1.9 N [id number] 18:11:00* Test Item Value Reference Range Interpretation Comments GLUBED (test code = GLUBED) 76 mg/dL 74-106 N Performed by certified dinkey operator at [facility] B-TYPE NATRIURETIC [id number] 17:45:00* Test Item Value Reference Range Interpretation Comments B-TYPE NATRIURETIC PEPTIDE (test code = BNP) 29.32 pgram/mL 0-100 N [id number] 17:39:00* Test Item Value Reference Range Interpretation Comments GLYCOSYLATED HEMOGLOBIN (HA1C) (test code = GLYHGB) 5.6 % HbA1 SUGGESTED DIAGNOSIS: HbA1C (%) Diabetic >6.4Prediabetes 5.7 - 6.4Normal <5.7 ESTIMATED AVERAGE GLUCOSE (test code = EAG) 114 MG/DL [id number] 17:39:00* Test Item Value Reference Range Interpretation Comments MAGNESIUM (test code = MAG) 2.7 mg/dL 1.8-2.4 H THYROID PROFILE [id number] 17:39:00* Test Item Value Reference Range Interpretation Comments T3 UPTAKE (test code = T3UP) 36.0 % 30.0-40.0 N T4 (THYROXINE) (test code = T4) 10.9 ug/dL 4.5-13.9 N T7 (FREE THYROXINE INDEX) (test code = T7) 3.92 FTI 1.3-5.1 N THYROID STIMULATING HORMONE (test code = TSH) 1.280 uIU/mL 0.36-3.7 4 N TSH REFERENCE RANGES: EUTHYROID: 0.35 - 4.3 mIU/mL HYPO : > 5.5 mIU/mL HYPER : < 0.35 mIU/mL [id number] 17:21:00* Test Item Value Reference Range Interpretation Comments MAGNESIUM (test code = MAG) 2.7 mg/dL 1.8-2.4 H THYROID PROFILE [id number] 17:21:00* Test Item Value Reference Range Interpretation Comments T3 UPTAKE (test code = T3UP) % 30.0-40.0 T4 (THYROXINE) (test code = T4) ug/dL 4.5-13.9 T7 (FREE THYROXINE INDEX) (test code = T7) FTI 1.3-5.1 THYROID STIMULATING HORMONE (test code = TSH) uIU/mL 0.36-3.7 4 - CT HEAD/BRAIN W/O [id number] 16:04:00 Name: PAN BARRIOS [facility] : 1975 Age/S: 44 / M [address] [facility] Unit #: [id number] Loc: [place] [address] Phys: Baldemar Aguilar MD Acct: [id number] Dis Date: Status: REG ER PHONE #: [phone] Exam Date: 03/30/2019 2721 FAX #: [phone] Reason: passed out, AMS EXAMS: CPT CODE: [id number] CT HEAD/BRAIN W/O CONT 00001 HISTORY: Syncope. COMPARISON: CT brain from November 21, 2018 CT brain without contrast: Automated exposure control. Location: [facility]. No acute intracranial bleeds or extra-axial collections and there is no acute territorial vascular infarction. The sadler-white matter diff erentiation is preserved. The sulci, gyri, ventricles and subarachnoid spa dion and the basilar cisterns are normal for patient's age. No herniation o r hydrocephalus or midline shift is noted. Fourth ventricle remains midlin e. Portions of the visualized paranasal sinuses are unremarkable. No obvious bony calvarial defect is noted. IMPRESS ION: No acute intracranial bleeds or extra-axial collections. No acute territorial vascular infarction. No herniation or hydrocephalus or midline shift. Electronica lly Signed by Too Augustin on 03/30/2019 at 1604 Re ported and signed by: Yoandy Augustin M.D. CC: Baldemar Aguilar MD Technologist:Siena Garcia RT(R); DOMENICO Villeda CTDI: DLP: Trnscb Date/Time: 03/30/2019 (1604) [email or web address] Orig Print D/T: S: 03/30/2019 (9875) PAGE 1 Signed Report BASIC METABOLIC [id number] 15:12:00* Test Item Value Reference Range Interpretation Comments SODIUM (test code = NA) 133 mmol/L 136-145 L POTASSIUM (test code = K) 3.8 mmol/L 3.5-5.1 N CHLORIDE (test code = CL) 97.0 mmol/L 98-107 L CARBON DIOXIDE (test code = CO2) 26.0 mmol/L 21-32 N ANION GAP (test code = GAP) 13.8 10-20 N GLUCOSE (test code = GLU) 110 mg/dL 74-106 H BLOOD UREA NITROGEN (test code = BUN) 20 mg/dL 7-18 H GLOMERULAR FILTRATION RATE (test code = GFR) > 60 mL/min >=60 Estimated GFR by using Modified MDRD formula.Chronic kidney disease is defined as either kidney damageor GFR <60 mL/min/1.73 m2 for >3 months. CREATININE (test code = CREAT) 1.10 mg/dL 0.7-1.3 N BUN/CREATININE RATIO (test code = BUN/CREA) 18.2 10-20 N CALCIUM (test code = CA) 9.0 mg/dL 8.5-10.1 N [id number] 15:12:00* Test Item Value Reference Range Interpretation Comments TROPONIN-I (test code = TROPI) <0.015 ng/mL 0-0.045 N HEPATIC FUNCTION [id number] 15:09:00* Test Item Value Reference Range Interpretation Comments TOTAL PROTEIN (test code = PROT) 7.4 gram/dL 6.4-8.2 N ALBUMIN (test code = ALB) 3.0 g/dL 3.4-5.0 L GLOBULIN (test code = GLOB) 4.4 gram/dL 2.7-4.2 H ALBUMIN/GLOBULIN RATIO (test code = A/G) 0.7 0.75-1.50 L BILIRUBIN TOTAL (test code = BILT) 1.40 mg/dL 0.0-1.0 H BILIRUBIN DIRECT (test code = BILD) 0.86 mg/dL 0.0-0.20 H SGOT/AST (test code = AST) 57 IUnit/L 15-37 H SGPT/ALT (test code = ALT) 44 IUnit/L 12-78 N ALKALINE PHOSPHATASE TOTAL (test code = ALKP) 86 IUnit/L 45-117 N Note change in reference range due to change in reagent. [id number] 15:09:00* Test Item Value Reference Range Interpretation Comments ALCOHOL (test code = ALC) 6 mg/dL 0.0-3.0 H -- INTERPRETIVE DATA NOTE: POSITIVE SCREENING RESULTS SHOULD BE CONSIDERED PRESUMPTIVE.WHEN COLLECTED FOR MEDICAL PURPOSES ONLY. SPECIMEN WILL NOTBE COLLECTED BY CHAIN OF CUSTODY.IF A CONFIRMATION OF POSITIVE RESULTS IS DESIRED, ACONFIRMATION TEST MUST BE REQUESTED BY THE PHYSICIAN AT ANADDITIONAL CHARGE TO THE PATIENT. BASIC METABOLIC [id number] 15:05:00* Test Item Value Reference Range Interpretation Comments SODIUM (test code = NA) 133 mmol/L 136-145 L POTASSIUM (test code = K) 3.8 mmol/L 3.5-5.1 N CHLORIDE (test code = CL) 97.0 mmol/L 98-107 L CARBON DIOXIDE (test code = CO2) mmol/L 21-32 ANION GAP (test code = GAP) 10-20 GLUCOSE (test code = GLU) mg/dL 74-106 BLOOD UREA NITROGEN (test code = BUN) mg/dL 7-18 GLOMERULAR FILTRATION RATE (test code = GFR) mL/min >=60 CREATININE (test code = CREAT) mg/dL 0.7-1.3 BUN/CREATININE RATIO (test code = BUN/CREA) 10-20 CALCIUM (test code = CA) 9.0 mg/dL 8.5-10.1 N [id number] 15:05:00* Test Item Value Reference Range Interpretation Comments TROPONIN-I (test code = TROPI) ng/mL 0-0.045 - XR CHEST 1 [id number] 15:04:00 FAX: Baldemar Aguilar [phone] [place]: B St: REG Name: PAN BEAUCHAMP [facility] : [birth year] Age/S: 44/M Raquel Roman Unit #: [id number] Loc: [place] [address] Phys: Baldemar Aguilar MD Acct: [id number] Dis Date: Status: REG ER PHONE #: [phone] Exam Date: 03/30/2019 1445 FAX #: [phone] Reason: CHEST PAIN EXAMS: CPT CODE: [id number] XR CHEST 1 V 40119 HISTORY: Chest pain. COMPARISON: Chest x-ray from May 26, 2016. Location: [facility]. No acute infiltrates, effusion or congestion is noted. Mild cardi omegaly. IMPRESSION: No acute infiltrates, e ffusion or congestion. 3 views of the right knee: Severe tricompartment joint space narrowing with marginal osteop hytes consistent with advanced osteoarthritis. No acute fracture or dislocation is noted. Moderate suprapatellar joint fluid is noted. O steopenia. Coarse calcification in the suprapatellar location. IMPRESSION: No acute fracture or dislocation. Severe tricompa rtment joint space narrowing with marginal osteophytes consistent with a dvanced osteoarthritis which is unusual for patient's age. Moderate suprapatellar joint fluid. at 150 Reported and signed by: Damaris Augustin M.D. CC: Baldemar Aguilar MD Technologist: MARIZOL ROSAS RT(R); Georgina Arrington RT(R); ... Trns crd Date/Time/By: 03/30/2019 (5935) : By: [email or web address] Orig Print D/T: S: 03/30/2019 (9897) PAGE 1 Signed Report - XR KNEE 3 V [id number] 15:04:00 FAX: Baldemar Aguilar [phone] [place]: B St: REG Name: PAN BEAUCHAMP [facility] : [birth year] Age/S: 44/M Raquel Roman Unit #: [id number] Loc: [place] [address] Phys: Baldemar Aguilar MD Acct: [id number] Dis Date: Status: REG ER PHONE #: [phone] Exam Date: 03/30/2019 1445 FAX #: [phone] Reason: pain and swelling EXAMS: CPT CODE: [id number] XR KNEE 3 [place] [address] HISTORY: Chest pain. COMPARISON: Chest x-ray from May 26, 2016. Location: [facility]. No acute infiltrates, effusion or congestion is noted. Mild cardi omegaly. IMPRESSION: No acute infiltrates, e ffusion or congestion. 3 views of the right knee: Severe tricompartment joint space narrowing with marginal osteop hytes consistent with advanced osteoarthritis. No acute fracture or dislocation is noted. Moderate suprapatellar joint fluid is noted. O steopenia. Coarse calcification in the suprapatellar location. IMPRESSION: No acute fracture or dislocation. Severe tricompa rtment joint space narrowing with marginal osteophytes consistent with a dvanced osteoarthritis which is unusual for patient's age. Moderate suprapatellar joint fluid. at 1504 Reported and signed by: Damaris Augustin M.D. CC: Baldemar Aguilar MD Technologist: MARIZOL ROSAS RT(R); Georgina Arrington RT(R); ... Trns crd Date/Time/By: 03/30/2019 (1736) : By: [email or web address] Orig Print D/T: S: 03/30/2019 (7293) PAGE 1 Signed Report CBC W/O [id number] 14:45:00* Test Item Value Reference Range Interpretation Comments WHITE BLOOD CELL (test code = WBC) 12.0 K/mm3 4.5-12.5 N RED BLOOD CELL (test code = RBC) 4.15 mill/mm3 4.0-5.8 N HEMOGLOBIN (test code = HGB) 11.7 gram/dL 13.0-17.5 L HEMATOCRIT (test code = HCT) 35.6 % 42.0-52.0 L MEAN CELL VOLUME (test code = MCV) 85.8 fL 80-98 N MEAN CELL HGB (test code = MCH) 28.2 picogram 27.0-33.0 N MEAN CELL HGB CONCETRATION (test code = MCHC) 32.9 gram/dL 33.0-36. 0 L RED CELL DISTRIBUTION WIDTH (test code = RDW) 13.3 % 11.6-16. 2 N PLATELET COUNT (test code = PLT) 349 K/mm3 150-450 N MEAN PLATELET VOLUME (test code = MPV) 10.6 fL 6.7-11.0 N
[2019-10-11] MEDS ORDERED: SODIUM CHLORIDE 0.9% 1000ML 1,000 ML IV STA (08:56)
--- NOTE | 2019-10-11 10:22 | NUR ---
sepsis sheet on chart by jeanette per protocol.
--- NOTE | 2019-10-11 10:37 | NUR ---
Nursing report given to Jeanmarie ROYAL. Per MD request hold transfer of pt to floor until 2nd lactic acid results.
--- NOTE | 2019-10-11 11:00 | NUR ---
Nursing report given to Moriah ROYAL
[2019-10-11 12:15] VITALS: BP 143/98
--- NOTE | 2019-10-11 12:23 | NUR ---
Pt received from ER at this time. Pt is aox4 and able to verbalize needs. +3 edema noted to left arm from hand to elbow. +3 edema to bilateral lower extremities with dry flaky skin. Wound noted to right lower ext brooks, with slough and light pink wound bed. minimal drainage noted. ER nurse states that ER physician is aware off newly resulted lactic acid of 2.4 and will be putting in orders for that at this time. Urine was sent to lab per ER.
[2019-10-11 12:24] LABS: CREATINE KINASE 103 IU/L (30-200)
[2019-10-11 12:47] LABS: AMPHETAMINES SCREEN,URINE NEGATIVE (NEGATIVE); BENZODIAZEPINES SCREEN,URINE NEGATIVE (NEGATIVE); CLARITY,URINE CLEAR (CLEAR); COLOR,URINE YELLOW (YELLOW); KETONES,URINE NEGATIVE (NEGATIVE); LEUKOCYTE ESTERASE ,URINE NEGATIVE (NEGATIVE); NITRITE,URINE NEGATIVE (NEGATIVE); PHENCYCLIDINE SCREEN,URINE NEGATIVE (NEGATIVE); PROTEIN,URINE DIPSTICK 1+ (NEGATIVE)
[2019-10-11 12:48] LABS: BILIRUBIN,URINE NEGATIVE (NEGATIVE); URINE UROBILINOGEN 0.2 mg/dL (0.2 - 1)
[2019-10-11 12:49] LABS: EPITHELIAL CELLS,URINE FEW /LPF; MUCUS,URINE FEW (RARE)
[2019-10-11 13:00] VITALS: BP 143/98
--- NOTE | 2019-10-11 13:00 | NUR ---
Dr. Haro here to see pt and received admission orders. Notified Dr. Haro of elevated Lactic acid and received orders for fluids and received fro fluids.
[2019-10-11] MEDS ORDERED: CEFEPIME HCL 1 GM VIAL IV SCH (13:30)
[2019-10-11] MEDS: SODIUM CHLORIDE 0.9% 1000ML 1,000 ML IV SCH (14:09)
[2019-10-11] MEDS: VANCOMYCIN 1GM/NS 250 ML 250 ML IV SCH ×2 (14:09→21:00)
[2019-10-11] MEDS: METOPROLOL TARTRATE 25 MG TAB PO SCH ×2 (14:10→21:02)
[2019-10-11] MEDS ORDERED: ACETAMINOPHEN 325 MG TAB PO PRN (14:45)
[2019-10-11 15:05] VITALS: BP 140/91
[2019-10-11 16:44] LABS: CHOL/HDL RATIO 4.4 (3.9-4.7)
--- NOTE | 2019-10-11 17:50 | Consultation ---
DATE OF CONSULTATION: 10/11/2019 REASON FOR CONSULTATION: Chest pain. HISTORY OF PRESENT ILLNESS: This is a 44-year-old male with history of hypertension. The patient presents to [facility] ER with complaints of chest pain. Cardiology was consulted. The patient is seen in room, reports that he woke up this morning with some chest discomfort, lasting for several hours, worse with deep breathing and palpation. Therefore, he came to the ER for further evaluation. EKG noted sinus rhythm. Troponins x2 negative. Again, the patient reports chest pain as worse with deep breathing and palpation. Denies any fevers, chills, coughing, any sick contacts. Of note, the patient is homeless and lives in his car. Reports for the past 2 to 3 weeks, has noticed left arm swollen. Denies any injury. PAST MEDICAL HISTORY: Hypertension, largely wheelchair-bound secondary to right knee injury. PAST SURGICAL HISTORY: Denies. SOCIAL HISTORY: He is homeless, lives in his car. He is single. Denies alcohol use or tobacco use. FAMILY HISTORY: Mother with history of lung cancer. Father with history of lung cancer. MEDICATIONS: Denies any medications. ALLERGIES: DENIES ANY ALLERGIES. REVIEW OF SYSTEMS: GENERAL: Denies any weight changes, fevers, chills, or night sweats. SKIN: Denies any rashes. However, does report left arm swelling, redness for about 2-3 weeks. HEENT: Denies any nausea, vomiting, blurred vision, double vision, epistaxis, sore throat, or swollen neck. CARDIAC: Chest pain as per HPI. RESPIRATORY: Denies any shortness of breath and coughing, hemoptysis. GI: Reports good appetite. Denies any nausea, vomiting, diarrhea, constipation, melena, tarry bloody stools. URINARY: Denies any frequency, urgency, hematuria, and dysuria. VASCULAR: Positive for lower extremity edema. Denies any claudication. MUSCULOSKELETAL: Positive for right knee pain. Positive for lower extremity swelling. NEUROLOGIC: Denies any numbness, tingling, tremors, paralysis. HEMATOLOGY: Positive for anemia. Denies any bruising. ENDOCRINE: Denies any heat or cold intolerance, polyuria, polydipsia, or polyphagia. PHYSICAL EXAMINATION: VITAL SIGNS: Height 71 inches, weight 230 pounds. Current vital signs, temperature 97.9, pulse 98, respiratory rate 18, blood pressure 140/91, pulse ox 98% on room air. GENERAL: Appears stated age, unreliable informant, no distress. SKIN: No rashes, bruises, however left arm noted with redness, swelling. HEENT: Normocephalic. Pupils equal reactive. Extraocular intact. Trachea midline. No JVD. No carotid bruit. HEART: Regular rate and rhythm. No murmurs or clicks. PMI at 4th intercostal space. LUNGS: Bilateral breath sounds, clear to auscultation. Good airway entry and exit. ABDOMEN: Soft, and nondistended. No organomegaly. The patient does have some epigastric tenderness with palpation. MUSCULOSKELETAL: Generalized joint pains, back pains, and right knee pain. VASCULAR: +2 radial pulses bilaterally, +2 DP/PT pulses bilaterally, also lower extremity with chronic venous changes to the skin. NEUROLOGIC: Cranial nerves II through XII seem intact. LABORATORY DATA: White count 9, hemoglobin 10, hematocrit 32, platelets 289. Sodium 134, potassium 3.4, chloride 97, bicarb 21, BUN 6, creatinine 0.8. Lactic acid 2.2. Troponin less than 0.001, less than 0.001. BNP 12. Chest x-ray showing well inflated lungs, however, minimal left basilar haziness. EKG showing normal sinus rhythm with heart rate 100. ASSESSMENT: 1. Chest pain, atypical for cardiac. 2. Left arm cellulitis. 3. Anemia. 4. Venous insufficiency with chronic venous changes. PLAN: 1. The patient presents to [facility] ER with complaints of chest pain, worse with deep breathing and palpation. Cardiac enzymes strongly negative x2. 2. We will continue to cycle enzymes. 3. We will get an echo to evaluate heart function structure. 4. Lipid panel. 5. Antibiotic therapy for his left arm cellulitis as per primary. 6. We will continue to follow patient and further recommendations as course progresses. Thank you very much for this consult. Seen and examined Agree with note Medical Rx Dictated by Duke Guerrier NP Joann Estes MD DC/KARLO /[id number] CHRIST
--- NOTE | 2019-10-11 19:06 | History and Physical ---
CHIEF COMPLAINT: This is a 44-year-old homeless man who comes in with chest pain. HISTORY OF PRESENTING ILLNESS: Mr. Rhett Jason with prior history of chest pain, unknown if it is cardiac or not, was in his usual state of health until this morning, the patient was sitting at [employer] and noticed that he was starting to have chest pains, noted as substernal and radiated to the left side with increased shortness of breath and also pressure-like pain. The patient came into the emergency room, was admitted to the hospital for chest pain. PAST MEDICAL HISTORY: Not very clear, but apparently, the patient has had hypertension, history of coronary artery disease and was admitted to two separate [facility] which include the [facility]. Apparently, stress tests were done and the patient is not clear what the findings were. He was given medication. The patient has been noncompliant with medication and currently not taking any. ALLERGIES: NO KNOWN DRUG ALLERGIES. OTHER MEDICAL HISTORY: Right-sided knee pain secondary to meniscal tear apparently, no surgeries were done. PAST SURGICAL HISTORY: Negative. SOCIAL HISTORY: No EtOH. No IV drug abuse. No history of any smoking either. The patient is homeless. REVIEW OF SYSTEMS: Positive for chest pain. Positive for shortness of breath. Positive for some nausea. No vomiting. No diarrhea. Positive for constipation. No rectal bleeding. No hematochezia. No hematemesis either. FAMILY HISTORY: Noncontributory. MEDICATIONS: None. PHYSICAL EXAMINATION: VITAL SIGNS: Temperature is 98.9, pulse of 108, respirations of 27, blood pressure is 152/79, and pulse oximetry of 98% on room air. HEENT: Normocephalic, atraumatic. Pupils are reactive. CVS: S1 and S2, tachy. ABDOMEN: Soft, nontender. EXTREMITIES: Right lower extremity with knee swelling and erythema. Positive for vascular changes in the right lower extremity. The patient has very poor hygiene with bad nails. Left upper extremity with increased redness, erythema, and tenderness. No induration. LABORATORY VALUES: White count is 9.47, hemoglobin of 10.1, and hematocrit of 32.0. Chemistry shows sodium 134, potassium of 3.7, BUN of 6, and creatinine 0.83. Lactic acid initially was 2.2, trended to 2.4 up. Troponin is less than 0.01 x2. BNP was 12.4. Toxicology was negative. Urine negative. IMAGING STUDIES: Chest x-ray was done, shows mild left basilar haziness which could represent subsegmental atelectasis or developing pneumonia. ASSESSMENT: Mr. Rhett Jason with: 1. Chest pain with tachycardia. 2. Sepsis on arrival. 3. History of questionable coronary artery disease and hypertension. 4. Morbid obesity. 5. Hypertension. PLAN: The patient will be started on metoprolol 25 mg twice a day. Echocardiogram will be done. BNP was done which was normal. We will follow through with the lactic acid. The patient was started on vancomycin and cefepime. We will continue with the same from the ER. ID consult was done. Cardiology consult will be done. An echocardiogram has been ordered. Social service consult for placement has been ordered too. Further recommendation per clinical course. We will continue to monitor the patient. MD ELVA Lao/MODL /[id number]
[2019-10-11 20:00] VITALS: BP 163/89
[2019-10-11] MEDS: CEFEPIME 1GM/NS 0.9% 50 ML 50 ML IV SCH (20:00)
[2019-10-11 21:05] LABS: CREATINE KINASE MB 0.6 ng/mL (0-5.0)
[2019-10-11] MEDS: HYDROCODONE/APAP 5MG-325MG TAB PO PRN (22:30)
[2019-10-11 23:26] LABS: CREATINE KINASE MB 0.5 ng/mL (0-5.0)
[2019-10-12] VITALS (7 sets, daily range): BP systolic 124–163; BP diastolic 71–89
[2019-10-12] MEDS: SODIUM CHLORIDE 0.9% 1000ML 1,000 ML IV SCH ×2 (03:00→10:13)
[2019-10-12 06:26] LABS: BASOPHILS % 0.4 % (0.0-1.0); EOSINOPHILS # (AUTO) 0.1 (0.0-0.4); EOSINOPHILS % 1.8 % (0.0-6.0); HEMATOCRIT 33.2 % (38.2-49.6); HEMOGLOBIN 10.6 g/dL (14.0-18.0); LYMPHOCYTES # (AUTO) 0.9 (1.0-3.2); LYMPHOCYTES % 12.6 % (18.0-39.1); MEAN CORPUSCULAR HEMOGLOBIN 28.3 pg (28-32); MEAN CORPUSCULAR HGB CONC 31.9 g/dL (31-35); MEAN CORPUSCULAR VOLUME 88.8 fL (81-99); MONOCYTES # (AUTO) 0.6 (0.2-0.8); MONOCYTES % 8.3 % (4.4-11.3); NEUTROPHILS # (AUTO) 5.6 (2.1-6.9); NEUTROPHILS % 76.2 % (38.7-80.0); PLATELET COUNT 267 x10e3/uL (140-360); RED BLOOD COUNT 3.74 x10e6/uL (4.3-5.7); RED CELL DISTRIBUTION WIDTH 14.9 % (11.7-14.4)
[2019-10-12 06:47] LABS: ALANINE AMINOTRANSFERASE 28 IU/L (0-55); ALBUMIN 3.8 g/dL (3.5-5.0); ALKALINE PHOSPHATASE 88 IU/L (40-150); BLOOD UREA NITROGEN 7 mg/dL (7-26); BUN/CREATININE RATIO 9 (6-25); CARBON DIOXIDE 19 mmol/L (22-29); CHLORIDE 100 mmol/L (98-107); CREATININE, SERUM 0.75 mg/dL (0.72-1.25); EST GLOMERULAR FILTRATION RATE > 60 ML/MIN (60-); GLUCOSE 89 mg/dL (74-118); SODIUM 134 mmol/L (136-145)
--- NOTE | 2019-10-12 09:22 | Progress Note ---
DATE: SUBJECTIVE: The patient came in with sepsis and chest pain. The patient is currently feeling better. No complaints. No chest pain or shortness of breath at this time. Left and right hand swelling has been better. Blood pressures have been trending better. OBJECTIVE: VITAL SIGNS: Temperature is 98.0, tachycardic at 101, respirations of 20, blood pressure is 132/78, pulse oximetry 98% on room air. HEENT: Normocephalic, atraumatic. Pupils are reactive. CVS: S1 and S2 normal. Regular rate rhythm. ABDOMEN: Soft, nontender, and nondistended. EXTREMITIES: Left lower upper extremity swelling is markedly decreased. Lower extremity, positive for vascular changes and poor hygiene of nails. LABORATORY VALUES: Pending for today. Troponins have been trended negative and hematology, lactic acid has trended down to 1.25. HDL was 22 and LDL of 57. ASSESSMENT AND PLAN: Mr. Rhett Jason with: 1. Chest pain, atypical. 2. Left arm cellulitis. Plan, continue on vancomycin and cefepime. ID consult on board. 3. Venous insufficiency. 4. History of homelessness. PLAN: Continue current medication. ID consult on board. Salvage Machine Operator on board. The patient can be discharged on p.o. antibiotics when social service can get some placement. Further recommendation per clinical course. We will continue to monitor the patient along with Cardiology. Echocardiogram is pending at this time. MD ELVA Lao/MODL /[id number]
--- NOTE | 2019-10-12 09:56 | NUR ---
WOUND CARE NURSE INITIAL CONSULTATION. HEAD TO TOE SKIN ASSESSMENT PERFORMED TODAY. 44 YEAR OLD MALE ADMITTED TO [facility] WITH DX OF ATYPICAL CHEST PAIN. HEAD TO TOE SKIN ASSESSMENT PERFORMED TODAY. PT PRESENTS WITH VENOUS ULCER TO RIGHT JACKMAN. PER PT, 2 WEEKS AGO HE DEVELOPED A BLISTER THAT ERUPTED AND HE TREATED WITH HYDROGEN PEROXIDE. ULCER MEASURES 4X6.5X0.2CM, PRESENTS WITH 50% PINK GRANULAR TISSUE AND 50% SLOUGH. 2+ PITTING EDEMA TO RIGHT LOWER LEG WELL CELLULITIS IS NOTED. 3+ PITTING EDEMA AND ERYTHEMA NOTED TO LEFT HAND AND FOREARM. NO OPEN AREAS NOTED AT THIS TIME. PT EDUCATED ON PLAN OF CARE AND DRESSING CHANGES. DIEING OUT MACHINE OPERATOR INVOICE CLERK AT BEDSIDE ADDRESSING NORMAL CARDIAC ENZYMES RESULTS WITH PT. THERE ARE NO OTHER AREAS OF CONCERN AT THIS TIME. LABS: WBC: 7.36 ALB: 3.8 BLOOD CX RESULTS ARE PENDING. RECOMMENDATIONS: CLEAN RIGHT LOWER LEG VENOUS ULCER WITH NS, APPLY SANTYL AND COVER WITH MOIST 4X4 GAUZE FOLLOWED BY KERLIX AND TAPE. CHANGE DRESSING DAILY AND PRN. MONITOR LEFT HAND AND FOREARM DAILY. ENCOURAGE TO REPOSITION EVERY 2 HOURS AND PRN. THANKS FOR THIS CONSULTATION. Addendum: 10/12/19 at 1010 by Michelle Kaminski RN Amended: Links added.
[2019-10-12] MEDS: CEFEPIME 1GM/NS 0.9% 50 ML 50 ML IV SCH (10:11)
[2019-10-12] MEDS: VANCOMYCIN 1GM/NS 250 ML 250 ML IV SCH (10:11)
[2019-10-12] MEDS: METOPROLOL TARTRATE 25 MG TAB PO SCH (10:12)
[2019-10-12] MEDS: HYDROCODONE/APAP 5MG-325MG TAB PO PRN (12:55)
--- NOTE | 2019-10-12 14:29 | NUR ---
SPOKE WITH PT ABOUT DISCHARGE TO SEE WHERE HE WANTS TO GO, PT REFUSING GROUP HOME AND TO GO TO FAMILY, ASKED IF HOSPITAL WILL PAY FOR HIM TO LIVE IN A DETENTION. TOLD HIM NO. GAVE HIM A GOLD CARD APPLICATION AND TOLD PASHA WHAT HE NEEDS TO DO TO GO TO SOCIAL SECURITY OFFICE APPLY FOR DISABILITY. PT ADAMANT HE WANT TO RETURN TO THE PARKING LOT HE CAME FROM. HE HAS ADDRESS. LET HIM KNOW WILL TELL NURSE TO ASSIST IN GETTING HIM A CAB TO RETURN TO THE LOCATION HE PROVIDES. ASKED IF CAN GET A COUPLE OF SANDWICH AND SNACKS FOR HIM TO TAKE WITH HIM FOR DISCHARGE. HE THEN ASKED IF THE HOSPITAL WILL GIVE HIM A WHEELCHAIR. ASKED FOR PAYMENT METHOD AND HE STATES THAT THE HOSPITAL SHOULD PAY FOR IT. LET HIM KNOW WHAT HE NEEDS TO GO TO GET SERVICES SET UP THROUGH [facility] AND GET A GOLD CARD AGAIN SINCE HE LET HIS LAPSE. ALERTED NURSE TO PLAN, SHE WILL CONTACT DR QUINTERO AND LET KNOW PT DESTINATION AND GT HOUSE SUPER TO ASSIST WITH CAB VOUCHER.
[2019-10-12] MEDS ORDERED: ENOXAPARIN SOD INJ 40 MG/0.4 ML SYR SC SCH (17:00)
[2019-10-13] MEDS ORDERED: COLLAGENASE 5 GM TUBE TP SCH (09:00)
== END 2019-10-12 16:20 | disposition home or self-care (01) ==
LOC: ER 23:00 → ERHOLD 10-11 07:48 → MED/SURG2 10-11 12:17
PROVIDERS: ADMIT Family Medicine; ATTEND Family Medicine
DX: A41.9 Sepsis, unspecified organism (principal); R07.89 Other chest pain; M19.90 Unspecified osteoarthritis, unspecified site; E66.01 Morbid (severe) obesity due to excess calories; I10 Essential (primary) hypertension; Z59.0 Homelessness; R00.0 Tachycardia, unspecified; L03.114 Cellulitis of left upper limb; L03.116 Cellulitis of left lower limb; L03.115 Cellulitis of right lower limb; D64.9 Anemia, unspecified; I87.2 Venous insufficiency (chronic) (peripheral); Z68.32 Body mass index [BMI] 32.0-32.9, adult
CPT/HCPCS: 36415 ×3; 71045; 80053 ×2; 80061; 80202; 80307; 81001; 82550 ×2; 82553 ×2; 83605; 83880; 84443; 84484 ×2; 85025 ×2; 87040; 93005; 93306; 96360; 96361; 97110; 97139 ×2; 97162; 97530; 99284; G0378 ×2; J0692 ×2; J3370 ×2; J7030 ×2; U0002

== ENCOUNTER 2021-02-24 00:09 | Emergency (ER) | payer SELFPAY ==
[~2021-02-24] VITALS: Ht 180.3 cm; Wt 104.3 kg
== END 2021-02-24 00:47 | disposition home or self-care (01) ==
LOC: ER 00:13
DX: R10.13 Epigastric pain (principal); K29.70 Gastritis, unspecified, without bleeding; I10 Essential (primary) hypertension
CPT/HCPCS: 99282

== ENCOUNTER 2021-02-26 07:52 | Emergency (ER) | payer OTHER ==
[~2021-02-26] VITALS: Ht 180.3 cm; Wt 104.3 kg
[2021-02-26 09:44] VITALS: BP 114/67
== END 2021-02-26 15:29 | disposition home or self-care (01) ==
LOC: ER 08:07
DX: T69.8XXA Other specified effects of reduced temperature, initial encounter (principal); Z59.02 Unsheltered homelessness; I10 Essential (primary) hypertension
CPT/HCPCS: 99283

== ENCOUNTER 2021-02-28 20:23 | Emergency (ER) | payer SELFPAY ==
[~2021-02-28] VITALS: Ht 180.3 cm; Wt 104.3 kg
[2021-02-28 22:01] LABS: BASOPHILS % 0.4 % (0.0-1.0); EOSINOPHILS # (AUTO) 0.1 (0.0-0.4); EOSINOPHILS % 0.7 % (0.0-6.0); HEMATOCRIT 32.3 % (38.2-49.6); HEMOGLOBIN 9.7 g/dL (14.0-18.0); LYMPHOCYTES # (AUTO) 1.7 (1.0-3.2); LYMPHOCYTES % 16.7 % (18.0-39.1); MEAN CORPUSCULAR HEMOGLOBIN 26.3 pg (28-32); MEAN CORPUSCULAR VOLUME 87.5 fL (81-99); MONOCYTES # (AUTO) 0.9 (0.2-0.8); MONOCYTES % 8.5 % (4.4-11.3); NEUTROPHILS # (AUTO) 7.6 (2.1-6.9); NEUTROPHILS % 72.6 % (38.7-80.0); PLATELET COUNT 432 x10e3/uL (140-360); RED BLOOD COUNT 3.69 x10e6/uL (4.3-5.7); RED CELL DISTRIBUTION WIDTH 14.6 % (11.7-14.4)
[2021-02-28 22:05] LABS: INR 0.91; PROTHROMBIN TIME 12.9 seconds (11.9-14.5)
[2021-02-28 22:06] LABS: PARTIAL THROMBOPLASTIN TIME 18.4 seconds (23.8-35.5)
[2021-02-28 22:13] LABS: ALBUMIN 2.8 g/dL (3.5-5.0); ALBUMIN/GLOBULIN RATIO 0.5 (0.8-2.0); ANION GAP 17.6 mmol/L (8-16); CALCIUM 10.1 mg/dL (8.4-10.2); CREATININE, SERUM 0.79 mg/dL (0.72-1.25); POTASSIUM 4.6 mmol/L (3.5-5.1)
[2021-02-28 22:19] LABS: CREATINE KINASE MB 3.8 ng/mL (0-5.0)
== END 2021-03-01 10:28 | disposition home or self-care (01) ==
LOC: ER 20:36
DX: Z76.5 Malingerer [conscious simulation] (principal); R42 Dizziness and giddiness; I10 Essential (primary) hypertension; M54.9 Dorsalgia, unspecified; G89.29 Other chronic pain; F17.210 Nicotine dependence, cigarettes, uncomplicated
CPT/HCPCS: 36415; 71045; 80053; 82550; 82553; 82948; 83880; 84484; 85025; 85610; 85730; 99283